=== PATIENT | female | born 1980 | race Caucasian/White ===

== ENCOUNTER 2017-11-27 08:20 | Day surgery (SDC) | payer OTHER, SELFPAY ==
[2017-11-22 09:59] VITALS: BMI 21.1
[2017-11-27] VITALS (9 sets, daily range): BP systolic 107–131; BP diastolic 68–83; PULSE 79–92; RESP 14–16; TEMP 36.3–36.9; O2SAT 95–100; BMI 20.9
[2017-11-27] MEDS: LACTATED RINGERS 1,000 ML 42 ML IV (09:16)
[2017-11-27] MEDS: MIDAZOLAM 2 MG/2 ML VIAL IV (09:43)
--- NOTE | 2017-11-27 10:02 | SUR.PREOP ---
Block start time [] . Monitoring initiated and maintained throughout procedure. Oxygen and medications given per anesthesiologist instructions. Patient remained stable throughout procedure, no adverse reactions noted. Block end time [].0943 Block start time [0943] . Monitoring initiated and maintained throughout procedure. Oxygen and medications given per anesthesiologist instructions. Patient remained stable throughout procedure, no adverse reactions noted. Block end time [0955].
[2017-11-27] MEDS: CEFAZOLIN 1 GM/50 ML FROZ.PIGGY IV (10:07)
--- NOTE | 2017-11-27 10:42 | P.PCN_ITS ---
Procedures Date/Time Date of procedure: 11/27/17 Time of procedure: 09:43 Nerve Block Time out performed: Yes Local anesthetic used: other (15mL 0.5 opivacaine, 5mL 2* idocaine) Location of anesthetic used: interscalene Amount of anesthesia used (mL): 20 Nerve blocks: brachial plexus (interscalene) Procedure successful: Yes Patient tolerated procedure: well Complications: none Additional comments: Risks and benefits discussed, including bleeding, infection , intravascular injection, nerve damage, block failure. Standard ASA monitors, NC O2. Pt supine. Chloroprep site preparation, sterile technique. Brachial plexus identified with US guidance, traced from supraclavicular to interscalene. 1mL 2% lidocaine skin wheal. 22g x 50mm Pajunk advanced with in- plane US guidance to brachial plexus. Negative aspiration. LA injected with intermittent negative aspiration. Good LA spread noted on US. No pain, no paraesthesia. Pt tolerated procedure well. Vital signs stable.
--- NOTE | 2017-11-27 10:55 | SUR.OPER ---
Lateral on padded OR bed with flores bag positioner, head on pillow, gel axillary roll in place, bottom leg bent with gel pad under knee to foot, upper leg straight and supported with pillows. Operative arm secured in shoulder positioning suspension device. non-operative arm secured on padded arm board. Safety belt at hip, tape over blanket securing lower legs.
--- NOTE | 2017-11-27 11:00 | PM.PREOP ---
Pre-operative Note Interval Note Pre-op Check: History & Physical Reviewed by Physician and Changes
[2017-11-27] MEDS: SODIUM CHLORIDE IRRIG SOLUTION 3,000 ML, EPINEPHrine 1 MG IRR (11:19)
[2017-11-27] MEDS: ONDANSETRON 4 MG/2 ML INJ IV (12:12)
[2017-11-27] MEDS: MEPERIDINE 25 MG/ML SYRINGE IV ×2 (12:14→12:26)
--- NOTE | 2017-11-27 12:14 | P.OP_ITS ---
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 After discussion the risks benefits and alternatives she has agreed to proceed with arthroscopic capsulorrhaphy. Risks discussed included but were not limited to: Failure to improve, stiffness, nerve damage, infection, deep venous thrombosis , pulmonary embolism, stroke, coma, permanent paralysis, myocardial infarction and . Surgeon: Chi Edmnodson Fiberglass Dowel Drawing Operator: Isaiah Kingsley Click Yes if Unassisted: No Anesthesia Type: General and Peripheral nerve block Operative Notes Findings: 1. Normal glenohumeral cartilage 2. Normal glenohumeral labrum 3. Normal biceps tendon 4. Normal subscapularis 5. Normal supraspinatus 6. Normal infraspinatus 7. Patulous capsule with very thin tissue 8. Exam under anesthesia notable for full range of motion but excessive laxity compared to the other side anterior posterior and inferior with a predominant anterior direction. Closure Type: primary Specimen(s): none sent Implants & Drains: Four Arthrex knotless SutureTak anchors were implanted. A fifth came loose and was removed and discarded. Applied: implant(s) Estimated Blood Loss (mL): 5 Blood products transfused: none Tourniquet time (min): 0 Procedure in detail: The patient was seen in the preoperative area where she identified her left shoulder as the operative site and this was marked with my initials. She received preoperative antibiotics and underwent the induction of an interscalene block. She was then taken to the operating room and placed on the operating room table in a supine position where she underwent induction with general anesthetic. Her shoulders were examined under anesthesia with result given above. She was then repositioned in the right lateral decubitus position with an axillary roll and padding for all pressure points. She was stabilized in this position using the flores bag. The left arm was prepared from the wrist to the base of the neck with ChloraPrep in the usual fashion and draped through sterile drapes. The arm was placed in 10 lb of skin cyst tension. The subcutaneous landmarks were outlined on the skin with a marking pen and portal sites selected. The posterior portal was created for the arthroscope and an anterior superior portal created for the 5 mm cannula. An anterior inferior portal was created for the larger 8.5 mm working cannula. Initially after diagnostic arthroscopy I used a rasp to abrade the capsule next to the anterior glenoid. Three anchors were placed and sutures placed sequentially from the inferior to the more superior tissues incorporating approximately a cm of patulous capsule to imbricate it. Switching sticks were then used to place the arthroscope in the anterior portal and the posterior portal was used for the 8.5 mm working cannula. A percutaneous approach was used to place a single anchor at the insertion of the posterior band of the inferior glenohumeral ligament. This ligament was also imbricated. This anchor was placed twice 1 time it pulled out and it was discarded. Prior to placement of the suture the capsule had been abraded as the anterior capsule had been. The shoulder was then examined out of traction with all fluid expelled. Stability had been restored. I had considered using a rotator interval closure but given the very friable tissue in the rotator interval it did not appear that there would be adequate suture to hold the stitch other than placing it through the subscapularis and supraspinatus themselves which I felt would be excessive. The wounds were closed with 4 0 Monocryl and Steri-Strips. Dressings of sterile 4x4s, an ABD and adhesive dressing were applied. The patient's arm was placed in a sling and she was transferred to the recovery room in good condition having tolerated the procedure well. Complications: none Condition: stable Disposition: PACU Plan for aftercare: The patient will be maintained on a standard multidirectional instability protocol with 6 weeks in a sling followed by physical therapy.
[2017-11-27] MEDS: OXYCODONE IR 5 MG TABLET PO (13:00)
== END 2017-11-27 13:49 ==
PROVIDERS: PCP Registered Nurse Diabetes Educator; Visit Provider Orthopaedic Surgery
PROC: 0RQK4ZZ Repair Left Shoulder Joint, Percutaneous Endoscopic Approach (ICD-10-PCS; CPT 29807; principal; 2017-11-27 09:45)
DX: M25.312 Other instability, left shoulder (principal); G89.18 Other acute postprocedural pain
CPT/HCPCS: 29806; 64450; J0171; J1100; J2175; J2250; J2405; J2704; J3010

== ENCOUNTER 2020-05-01 18:45 | Observation (INO) | payer OTHER, SELFPAY ==
[2020-05-01 18:50] VITALS: BP 155/79; PULSE 83; RESP 20; TEMP 36.4; O2SAT 100; BMI 20.9
--- NOTE | 2020-05-01 18:59 | DI.RAD.S_ITS ---
PROCEDURE: XR CHEST 1V INDICATIONS: chest pain TECHNIQUE: One view of the chest was acquired. COMPARISON: None. FINDINGS: Surgical changes and devices: None. Lungs and pleura: Lungs are clear. No pleural effusions or pneumothorax. Mediastinum: Mediastinal contours appear normal. Heart size is normal. Bones and chest wall: No suspicious bony lesions. Overlying soft tissues appear unremarkable. IMPRESSION: No acute cardiopulmonary abnormality. Dictated by: Nicola Zayas M.D. on 05/01/2020 at 19:48 Approved by: Nicola Zayas M.D. on 05/01/2020 at 19:49
[2020-05-01 19:30] LABS: Add Manual Diff / Slide Review NO; Basophils Absolute Auto 0 /uL (0-100); Basophils Percent Auto 0.4 % (0-2); Eosinophils Absolute Auto 100 /uL (0-450); Eosinophils Percent Auto 0.8 % (2-4); Hematocrit 37.3 % (36-46); Hemoglobin 12.5 g/dL (12.0-16.0); Lymphocytes Absolute Auto 2100 /uL (1100-4500); Lymphocytes Percent Auto 21.3 % (25-40); Mean Corpuscular HGB Conc 33.6 % (30-36); Mean Corpuscular Hemoglobin 30.5 PG (26-34); Monocytes Absolute Auto 700 /uL (0-900); Monocytes Percent Auto 6.7 % (3-14); Neutrophils Absolute Auto 7100 /uL (1500-7000); Neutrophils Percent Auto 70.8 % (50-75); Platelet Count 265 X10^3/uL (150-400); Red Cell Distribution Width 13.5 % (11.6-14.8)
[2020-05-01 19:38] LABS: Prothrombin Time 11.2 SECONDS (10.1-12.7)
[2020-05-01 19:40] LABS: PTT Partial Thromboplastin Tim 29 SECONDS (26.4-36.2)
[2020-05-01 19:42] LABS: Alanine Aminotransferase 11 IU/L (<35); Albumin 4.1 g/dL (3.5-5.0); Albumin Globulin Ratio 1.3 (1.0-2.8); Alkaline Phosphatase 52 U/L (38-126); Aspartate Aminotransferase 20 IU/L (14-36); BUN Creatinine Ratio 14.5 (6-22); Bilirubin Total 0.3 mg/dL (0.2-1.3); Blood Urea Nitrogen 12 mg/dL (7-17); Calcium 8.7 mg/dL (8.4-10.2); Carbon Dioxide 31 mmol/L (22-32); Chloride 103 mmol/L (98-107); Creatine Kinase 51 U/L (30-135); Estimated Glomerular Filt Rate > 60.0 mL/min (>60); Globulin 3.2 g/dL (1.7-4.1); Glucose 114 mg/dL (70-100); HEMOLYSIS < 15 (0-50); Lipase 86 U/L (23-300); Potassium 4.6 mmol/L (3.4-5.1); Sodium 137 mmol/L (137-145); Total Protein 7.3 g/dL (6.3-8.2)
[2020-05-01 19:54] LABS: Troponin I < 0.012 ng/mL (0.01-0.034)
[2020-05-01 20:02] VITALS: BP 123/72; RESP 12
--- NOTE | 2020-05-01 20:06 | ED_ITS ---
HPI - Extremity Problem General Chief complaint: Extremity Problem,Nontraumatic Stated complaint: RIGHT SHOULDER PAIN HARD TIME BREATHING OF PAIN Time Seen by Provider: 05/01/20 19:11 Source: patient Mode of arrival: Family Vehicle Limitations: no limitations History of Present Illness HPI Narrative: 39-year-old female nonsmoker with noncontributory medical history presents with her significant other and a chief complaint of severe right shoulder pain in the absence of injury, gradually worsening over the course of the day. She denies any numbness, tingling or weakness. She denies any worsening of pain with motion of her arm but does state that it hurts when she takes a deep breath or lays on her right side. She has had nausea but denies any vomiting or fever. MD Complaint: extremity pain Onset (ago): hour(s) Pain Consistency: constant Location: right Quality: burning and stabbing Radiation: none Associated symptoms: chest pain Related Data Home Medications Medication Instructions Recorded Confirmed clonidine HCl 0.2 mg PO QPM 11/22/17 05/02/20 pentosan polysulfate sodium 100 mg PO DAILY 11/22/17 05/02/20 [Elmiron] norgestimate-ethinyl estradiol 1 tab PO DAILY 05/02/20 05/02/20 [Previfem] trazodone 25 mg PO BEDTIME 05/02/20 05/02/20 venlafaxine [Effexor XR] 150 mg PO BEDTIME 05/02/20 05/02/20 Allergies Allergy/AdvReac Type Severity Reaction Status Date / Time wheat dextrin Allergy Severe Abdominal Verified 05/01/20 22:26 Pain Sulfa (Sulfonamide Allergy Unknown Unverified 05/01/20 22:26 Antibiotics) [SULFA (SULFONAMIDE ANTIBIOTICS)] Review of Systems Constitutional Constitutional: Denies chills, Denies fatigue, Denies fever(s), Denies frequent falls, Denies lethargy and Denies weakness Eyes Eyes: Denies change in vision, Denies eye discharge, Denies irritation and Denies loss of vision ENT Ears, Nose, Mouth, and Throat: Denies change in voice, Denies dizziness, Denies neck pain, Denies sore throat and Denies throat swelling Cardiovascular Cardiovascular: Denies chest pain, Denies irregular heart rhythm, Denies lightheadedness, Denies palpitations, Denies dyspnea, Denies dyspnea on exertion and Denies orthopnea Respiratory Respiratory: Denies cough, Denies dyspnea, Denies dyspnea on exertion and Denies wheezing Gastrointestinal Gastrointestinal: Reports abdominal pain, Denies change in bowel habits, Denies diarrhea, Reports nausea and Denies vomiting Musculoskeletal Musculoskeletal: Reports back pain, Denies neck pain and Denies numbness Integumentary/Breasts Skin/Breast: Denies pruritus, Denies erythema, Denies rash and Denies wounds Neurologic Neurologic: Denies behavioral changes, Denies confusion, Denies dizziness, Denies frequent falls, Denies loss of vision, Denies numbness and Denies weakness Psychiatric Psychiatric: Denies anxiety, Denies behavioral changes, Denies confusion, Denies depression, Denies homicidal ideation and Denies suicidal ideation Endocrine Endocrine: Denies fatigue, Denies flushing and Denies palpitations Hematologic/Lymphatic Hematologic/Lymphatic: Denies easy bruising Allergic/Immunologic Allergic/Immunologic: Denies urticaria, Denies throat swelling and Denies wheezing Patient History Medical History (Updated 05/02/20 @ 02:04 by Adan Lan DO) Headache, migraine History of UTI Weakness of left upper extremity Surgical History (Updated 11/22/17 @ 10:05 by Alma Rodriguez RN) H/O breast augmentation H/O wisdom tooth extraction H/O: Hx of shoulder surgery Social History household members: spouse and children Smoking Status: Never smoker alcohol intake: never Smoking Status: Never smoker alcohol intake frequency: 0-2 drinks per day Substance Use Type: does not use Exam Narrative Exam Narrative: GENERAL: [39] year old patient appears stated age. Well- nourished, well-developed patient, in mild distress. HEAD: Atraumatic. Normocephalic. EYES: Pupils equal round and reactive. Extraocular motions intact. No scleral icterus. No injection or drainage. ENT: Nose without bleeding, purulent drainage. Throat without erythema, tonsilla r hypertrophy or exudate. Airway patent. NECK: Trachea midline. Non tender CARDIOVASCULAR: Regular rate and rhythm without murmurs, gallops, or rubs. RESPIRATORY: Clear to auscultation. Breath sounds equal bilaterally. No wheezes, rales, or rhonchi. GASTROINTESTINAL: Abdomen soft, tender in right upper quadrant to palpation, nondistended. EXTREMITIES: No edema or joint tenderness. No reproducible pain with palpation, or range of motion of shoulder (passive or active) BACK: Nontender without deformity or crepitance. No flank tenderness. NEURO: AOx3. SKIN: No rash or erythema of visible areas Initial Vital Signs Initial Vital Signs: Vital Signs Temperature 97.6 F 05/01/20 18:50 Pulse Rate 83 05/01/20 18:50 Respiratory Rate 20 05/01/20 18:50 Blood Pressure 155/79 H 05/01/20 18:50 Pulse Oximetry 100 05/01/20 18:50 Course Orders Ordered: ED Orders 05/01/20 18:56 EKG-12 Lead Stat 05/01/20 18:59 XR chest 1V Stat 05/01/20 19:23 Complete Blood Count AUTO DIFF Stat Comprehensive Metabolic Panel Stat Lipase Stat Partial Thromboplastin Time Stat Prothrombin Time INR Stat Troponin & CK Cardiac Panel Stat 05/01/20 20:23 US abdomen limited Stat 05/01/20 22:49 CT abdomen pelvis w con Stat 05/02/20 00:40 CT angio chest PE protocol Stat 05/02/20 01:42 COVID19 Stat Enoxaparin Sodium (Enoxaparin 60 Mg/0.6 Ml Syringe) 60 mg 1 mg/kg (60 mg) SUBCUT BID TARA Last Admin: 05/02/20 01:39 Dose: 60 mg Documented by: BRYNN Ondansetron HCl (Ondansetron 4 Mg/2 Ml Inj) 4 mg IV Q4HR PRN PRN Reason: Nausea And Vomiting Last Admin: 05/01/20 20:29 Dose: 4 mg Documented by: BRYNN Discontinued Medications Hydromorphone HCl (Hydromorphone 0.5 Mg Inj) 0.5 mg IV NOW ONE Stop: 05/01/20 20:24 Last Admin: 05/01/20 20:29 Dose: 0.5 mg Documented by: BRYNN Sodium Chloride (Normal Saline 0.9%) 1,000 mls @ 1,000 mls/hr IV BOLUS ONE Stop: 05/01/20 21:22 Last Infusion: 05/02/20 02:15 Dose: 0 mls/hr Documented by: Infusion: 05/02/20 01:30 Dose: 1,000 mls/hr Documented by: Infusion: 05/01/20 20:46 Dose: 0 mls/hr Documented by: Admin: 05/01/20 20:29 Dose: 1,000 mls/hr Documented by: BRYNN Ketorolac Tromethamine (Ketorolac 60 Mg/2 Ml Vial) 15 mg IV NOW ONE Stop: 05/01/20 22:50 Last Admin: 05/01/20 22:58 Dose: 15 mg Documented by: BRYNN Vital Signs Vital signs: Vital Signs - 8 hr 05/01/20 18:50 05/01/20 20:02 05/02/20 01:56 Temperature 97.6 F Pulse Rate 83 74 Respiratory Rate 20 12 16 Blood Pressure 155/79 H 123/72 123/77 Pulse Oximetry 100 98 05/02/20 02:00 Temperature Pulse Rate 68 Respiratory Rate 19 Blood Pressure 122/72 Pulse Oximetry 98 MDM - Extremity (Nontraumatic) Lab Data Result diagrams: 05/01/20 19:23 05/01/20 19:23 Labs: Lab Results 05/01/20 05/01/20 05/01/20 Range/Units 19:23 19:23 19:23 WBC 10.0 (4.5-11.0) X10^3/uL RBC 4.10 (4.0-5.2) X10^6/uL Hgb 12.5 (12.0-16.0) g/dL Hct 37.3 (36-46) % MCV 91.0 (80-100) fL MCH 30.5 (26-34) PG MCHC 33.6 (30-36) % RDW 13.5 (11.6-14.8) % Plt Count 265 (150-400) X10^3/uL Neut % (Auto) 70.8 (50-75) % Lymph % (Auto) 21.3 L (25-40) % [place] % (Auto) 6.7 (3-14) % Eos % (Auto) 0.8 L (2-4) % Baso % (Auto) 0.4 (0-2) % Neut # (Auto) 7100 H (2764-2671) /uL Lymph # (Auto) 2100 (1493-7372) /uL [place] # (Auto) 700 (0-900) /uL Eos # (Auto) 100 (0-450) /uL Baso # (Auto) 0 (0-100) /uL PT 11.2 (10.1-12.7) SECONDS INR 1.0 (0.9-1.3) APTT 29 (26.4-36.2) SECONDS Sodium 137 (137-145) mmol/L Potassium 4.6 (3.4-5.1) mmol/L Chloride 103 (98-107) mmol/L Carbon Dioxide 31 (22-32) mmol/L BUN 12 (7-17) mg/dL Creatinine 0.83 (0.52-1.04) mg/dL Estimated GFR > 60.0 (>60) mL/min BUN/Creatinine Ratio 14.5 (6-22) Glucose 114 H (70-100) mg/dL Calcium 8.7 (8.4-10.2) mg/dL Total Bilirubin 0.3 (0.2-1.3) mg/dL AST 20 (14-36) IU/L ALT 11 (<35) IU/L Alkaline Phosphatase 52 (38-126) U/L Total Creatine Kinase 51 (30-135) U/L CK-MB (CK-2) TNP CK-MB (CK-2) Rel Index TNP Troponin I < 0.012 (0.01-0.034) ng/mL Total Protein 7.3 (6.3-8.2) g/dL Albumin 4.1 (3.5-5.0) g/dL Globulin 3.2 (1.7-4.1) g/dL Albumin/Globulin Ratio 1.3 (1.0-2.8) Lipase 86 (23-300) U/L COVID-19 PCR (Negative) 05/02/20 Range/Units 01:42 WBC (4.5-11.0) X10^3/uL RBC (4.0-5.2) X10^6/uL Hgb (12.0-16.0) g/dL Hct (36-46) % MCV (80-100) fL MCH (26-34) PG MCHC (30-36) % RDW (11.6-14.8) % Plt Count (150-400) X10^3/uL Neut % (Auto) (50-75) % Lymph % (Auto) (25-40) % [place] % (Auto) (3-14) % Eos % (Auto) (2-4) % Baso % (Auto) (0-2) % Neut # (Auto) (5507-5774) /uL Lymph # (Auto) (5575-5649) /uL [place] # (Auto) (0-900) /uL Eos # (Auto) (0-450) /uL Baso # (Auto) (0-100) /uL PT (10.1-12.7) SECONDS INR (0.9-1.3) APTT (26.4-36.2) SECONDS Sodium (137-145) mmol/L Potassium (3.4-5.1) mmol/L Chloride (98-107) mmol/L Carbon Dioxide (22-32) mmol/L BUN (7-17) mg/dL Creatinine (0.52-1.04) mg/dL Estimated GFR (>60) mL/min BUN/Creatinine Ratio (6-22) Glucose (70-100) mg/dL Calcium (8.4-10.2) mg/dL Total Bilirubin (0.2-1.3) mg/dL AST (14-36) IU/L ALT (<35) IU/L Alkaline Phosphatase (38-126) U/L Total Creatine Kinase (30-135) U/L CK-MB (CK-2) CK-MB (CK-2) Rel Index Troponin I (0.01-0.034) ng/mL Total Protein (6.3-8.2) g/dL Albumin (3.5-5.0) g/dL Globulin (1.7-4.1) g/dL Albumin/Globulin Ratio (1.0-2.8) Lipase (23-300) U/L COVID-19 PCR Negative (Negative) Imaging Data Chest x-ray: Radiologist's Impression: [address] [id number] ReportSigned Patient: Florinda Dimas LMR#: [id number]: [id number]:[id number]/Sex: 39 / FDate of Service: 05/01/20Loc: EDAccession Number: [id number] Procedure: XR chest 1V Ordering Provider: Adan Lan D.O. PROCEDURE: XR CHEST 1V INDICATIONS: chest pain TECHNIQUE: One view of the chest was acquired. COMPARISON: None. FINDINGS: Surgical changes and devices: None. Lungs and pleura: Lungs are clear. No pleural effusions or pneumothorax. Mediastinum: Mediastinal contours appear normal. Heart size is normal. Bones and chest wall: No suspicious bony lesions. Overlying soft tissues appear unremarkable. IMPRESSION: No acute cardiopulmonary abnormality. Dictated by: Nicola Zayas M.D. on 05/01/2020 at 19:48 Approved by: Nicola Zayas M.D. on 05/01/2020 at 19:49 CT scan - abdomen/pelvis: Radiologist's Impression: Anterolateral right lower lobe consolidation, probable pneumonia CT scan - chest: Radiologist's Impression: Multiple small right lower lobe pulmonary emboli with consolidation concerning for infarct MDM Narrative Medical decision making narrative: Patient initial presentation is of right shoulder pain in the absence of any injury. She states she woke up with it is afraid she had slept wrong. She has got no respiratory complaints in terms of shortness of breath, cough or hemoptysis, only complains that a deep breath hurts along her lower rib. On exam she was quite tender in her right upper quadrant and there was clinical concern for gallbladder disease causing radiation of pain to her shoulder, particularly in the setting of an elevated bilirubin. Ultrasound demonstrated a benign appearing gallbladder, CT was ordered for more detailed examination. Consolidation concerning for pneumonia and possibly PE made a CTA required. Patient requires admission given evidence of infarct on imaging, though she has the absence of any respiratory distress, hypoxia or hemoptysis. She denies any obvious risk factors other than blood thinners. She has no evidence of right heart strain which would require transfer. She has been advised her diagnosis and need for admission, she understands and agrees with the plan Discharge Plan Departure Patient Disposition: Admitted as Observation Clinical Impression: Embolism, pulmonary with infarction Pulmonary embolism Qualifiers: Pulmonary embolism type: unspecified Chronicity: acute Acute cor pulmonale presence: without acute cor pulmonale Qualified Code(s): I26.99 - Other pulmonary embolism without acute cor pulmonale Admit Date/Time: 05/02/20 02:06 Admit Provider: Paty Courtney
--- NOTE | 2020-05-01 20:23 | DI.US.S_ITS ---
PROCEDURE: US ABDOMEN LIMITED INDICATIONS: severe RUQ pain with radiation to the back/shoulder TECHNIQUE: Real-time scanning was performed of the abdominal, with image documentation. COMPARISON: [facility], CR, XR CHEST 1V, 05/01/2020, 19:43. FINDINGS: Liver: Liver is normal in size and homogeneous in echotexture. Gallbladder: Nondilated. No stones or sludge. Normal gallbladder wall thickness. No pericholecystic fluid. Negative sonographic Rebollar's sign. Biliary ducts: Intrahepatic bile ducts are non-dilated. Extrahepatic bile duct caliber measures 2 mm. Normal is 6-7 mm or less in diameter, or 10 mm or less post-cholecystectomy. Pancreas: Visualized portions of the pancreas are sonographically normal. IMPRESSION: No acute cholecystitis. No gallstones. Dictated by: Nicola Zayas M.D. on 05/01/2020 at 21:34 Approved by: Nicola Zayas M.D. on 05/01/2020 at 21:35
[2020-05-01] MEDS: HYDROMORPHONE 0.5 MG INJ IV (20:29)
[2020-05-01] MEDS: ONDANSETRON 4 MG/2 ML INJ IV (20:29)
[2020-05-01] MEDS: SODIUM CHLORIDE 0.9% 1,000 ML 1000 ML IV (20:29)
--- NOTE | 2020-05-01 22:49 | DI.CT.S_ITS ---
PROCEDURE: CT ABDOMEN PELVIS W CON INDICATIONS: RIGHT SHOULDER PAIN HARD TIME BREATHING TECHNIQUE: After the administration of intravenous contrast, 5 mm thick sections acquired from the diaphragm to the symphysis. 5 mm coronal and sagittal reformats were acquired. For radiation dose reduction, the following was used: automated exposure control, adjustment of mA and/or kV according to patient size. COMPARISON: [facility], CT, CT ANGIO CHEST PE PROTOCOL, 05/02/2020, 0:41. FINDINGS: Image quality: Excellent. ABDOMEN: Lung bases: Focal consolidation, interim basal segment, right lower lobe. Pulmonary emboli are seen on the corresponding PE protocol chest CT angiogram. Heart size is normal. Solid organs: Liver is normal in size and enhancement. Gallbladder is unremarkable. Biliary system is non dilated. Pancreas enhances normally. Spleen is normal in size and enhancement. No adrenal nodules. Kidneys demonstrate normal size and enhancement, without hydronephrosis. Peritoneum and bowel: Bowel loops demonstrate normal wall thickness and caliber. Physiologic fluid in the pelvis. No free air or abscess. Large amount of fecal debris. Nodes and vessels: No retroperitoneal or mesenteric adenopathy by size criteria. Aorta and inferior vena cava are normal in size. Miscellaneous: No ventral hernias. Bilateral mammoplasties PELVIS: Genitourinary: Bladder wall thickness is normal. Miscellaneous: No inguinal hernias or adenopathy. Bones: No suspicious bony lesions. No vertebral body compression fractures. IMPRESSION: 1. Pulmonary emboli are seen on the CT angiogram of the chest. Please refer to a separate report. 2. Focal consolidation in the anterior basal segment of the right lower lobe may represent pulmonary infarct. 3. Large fecal load. Comment: Final report is concordant with preliminary interpretation provided by [facility]. Dictated by: Yefri Loera M.D. on 05/02/2020 at 8:56 Approved by: Yefri Loera M.D. on 05/02/2020 at 9:00
[2020-05-01] MEDS: KETOROLAC 60 MG/2 ML VIAL 15 MG IV (22:58)
[2020-05-02] VITALS (13 sets, daily range): BP systolic 120–138; BP diastolic 72–87; PULSE 66–89; RESP 15–20; TEMP 36.2–37; O2SAT 94–100; BMI 20.9
--- NOTE | 2020-05-02 | DI.US.S_ITS ---
PROCEDURE: US CAROTID DOPPLER BI INDICATIONS: right sided PE TECHNIQUE: Color and pulse Doppler interrogation was performed of both carotid systems, with image documentation and velocity measurements. COMPARISON: None. FINDINGS: Stenosis calculations are based on SRU (Society of Radiologists in Ultrasound) criteria. Right side: Common carotid artery peak systolic velocity: 62 cm/sec. Internal carotid artery peak systolic velocity: 84.1 cm/sec. Internal carotid artery end diastolic velocity: 36.8 cm/sec. External carotid artery peak systolic velocity: 108 cm/sec. ICA/CCA peak systolic ratio: 1.36 . Alvarado scale imaging description: There is minimal echogenic plaque at the distal common carotid/bulb. Percent internal carotid artery stenosis: No significant stenosis . Vertebral artery: Flow direction is antegrade. Left side: Common carotid artery peak systolic velocity: 75.8 cm/sec. Internal carotid artery peak systolic velocity: 80.2 cm/sec. Internal carotid artery end diastolic velocity: 35.6 cm/sec. External carotid artery peak systolic velocity: 75.5 cm/sec. ICA/CCA peak systolic ratio: 1.03 . Alvarado scale imaging description: There is minimal echogenic plaque noted within the common carotid artery and at the bulb. Percent internal carotid artery stenosis: No significant stenosis. . Vertebral artery: Flow direction is antegrade. IMPRESSION: No significant flow limiting stenosis. Dictated by: Chalino Shirley D.O. on 05/02/2020 at 14:43 Approved by: Chalino Shirley D.O. on 05/02/2020 at 14:48
--- NOTE | 2020-05-02 00:40 | DI.CT.S_ITS ---
PROCEDURE: CT ANGIO CHEST PE PROTOCOL INDICATIONS: pleuritic chest pain, abnormal abdomen CT TECHNIQUE: After the administration of intravenous contrast, 2 mm thick sections acquired from the pulmonary apices to the posterior costophrenic angles. 3-dimensional maximum intensity projection (MIP) coronal and sagittal reformats were then acquired through the thorax. For radiation dose reduction, the following was used: automated exposure control, adjustment of mA and/or kV according to patient size. COMPARISON: None. FINDINGS: Image quality: Excellent. Pulmonary arteries: Pulmonary arteries are normal in size. There are multiple filling defects within the right lower lobe segmental and subsegmental vessels. In addition there is subsegmental filling defect within the left lower lobe. Lungs and pleura: Consolidation within the lateral and anterior aspect of the right lower lobe with ground-glass consolidation centrally and more density peripherally. No additional consolidation. There is no pneumothorax or pleural effusion. There is mild apical scarring. No pleural effusions or pneumothorax. Central and peripheral airways are patent. Mediastinum: Heart size is normal, without pericardial effusion. No evidence of right heart strain. The RV to LV ratio is approximately 0.8. No mediastinal or hilar adenopathy. Thoracic aorta is normal in caliber and enhancement. Esophagus is normal in caliber, without hiatal hernia. Bones and chest wall: No suspicious bony lesions. Ribs and thoracic spine appear intact throughout. Thyroid gland is unremarkable. No axillary or supraclavicular adenopathy. Bilateral breast implants are intact. Abdomen: Visualize upper abdomen demonstrates subcentimeter hypodensities within the liver too small to further characterize but statistically represent simple cysts. Contrast is noted within the collecting system. No acute abnormality within the visualized upper abdomen. IMPRESSION: Multiple right lower lobe segmental and subsegmental pulmonary emboli. In addition there is a left lower lobe subsegmental emboli. No evidence of right heart strain. Anterolateral right lower lobe consolidation concerning for infarct. Subtle discrepancy from preliminary report. Preliminary report did not discuss left lower lobe subsegmental emboli, otherwise no additional change from preliminary report. Dictated by: Chalino Shirley D.O. on 05/02/2020 at 7:43 Approved by: Chalino Shirley D.O. on 05/02/2020 at 7:56
[2020-05-02] MEDS: ENOXAPARIN 60 MG/0.6 ML SYRINGE SUBCUT ×2 (01:39→07:58)
[2020-05-02 02:14] LABS: COVID19 -Nasal RAPID Negative (Negative)
--- NOTE | 2020-05-02 03:40 | PM.HP.1 ---
History of Present Illness History of Present Illness Date Patient Seen: 05/02/20 Time Patient Seen: 01:00 Chief complaint: RIGHT SHOULDER PAIN HARD TIME BREATHING OF PAIN Narrative: Florinda Dimas is 39-year-old female nonsmoker with a history of celiac disease, anxiety and interstitial cystitis and takes oral contraception, presented with her significant other and a chief complaint of severe right shoulder pain in the absence of injury, gradually worsening over the course of the day. She woke up with pain in her right shoulder initially thinking she may have slept on it wrong. The pain progressively got worse and after approximately late afternoon it seemed to be correlated with her breathing. She denies any nasal congestion, headaches, she has had palpitations today, she has also been short of breath earlier today. She has interstitial cystitis so has chronic polyuria and nocturia. She denies any issues with peripheral neuropathy or skin rashes. She denies any numbness, tingling or weakness. She denies any worsening of pain with motion of her arm but does state that it hurts when she takes a deep breath or lays on her right side. She has had nausea but denies any vomiting or fever. She denies a history of recent travel, prolonged immobility, recent surgery, or recent trauma to her upper lower extremities. In the ED they are raised a reasonable suspicion of a PE after she had point tenderness to deep palpation of her right shoulder that did not seem correlated with her moving her arm around. They did a CT of abdomen and pelvis which identified anteriorolateral right lower lobe consolidation with a suspicion for pneumonia. A subsequent CT angio of the chest indicated right anterolateral and post medial lower lobe pulmonary emboli. No evidence of right heart strain with a right to left ventricle ratio 0.8. They also noted anterolateral right lower consolidation concerning for infarct. Patient's temp was 97.2?, blood pressure 136/86, heart rate 76, respiratory rate of 16, oxygen saturation 94% on room air, she weighs 50.9 kg with a BMI of 20.9. With exception of mild lymphopenia her CBC is within normal limits. She also has a mild left shift at 7100 neutrophils, glucose is 114, and COVID-19 PCR is negative. Patient History Medical History Headache, migraine History of UTI Weakness of left upper extremity Surgical History H/O breast augmentation H/O wisdom tooth extraction H/O: Hx of shoulder surgery Family & Social History Social History: household members spouse,children Safety & Behavioral: Feels Safe in Current Yes Environment Been Physically Hurt or No Threatened By a Person Tobacco & Substance use: Smoking Status Never smoker alcohol intake never alcohol intake frequency 0-2 drinks per day Substance Use Type does not use Meds Home Medications and Allergies Home Medications Medication Instructions Recorded Confirmed Type clonidine HCl 0.2 mg PO QPM 11/22/17 05/02/20 History pentosan polysulfate sodium 100 mg PO DAILY 11/22/17 05/02/20 History [Elmiron] norgestimate-ethinyl estradiol 1 tab PO DAILY 05/02/20 05/02/20 History [Previfem] trazodone 25 mg PO BEDTIME 05/02/20 05/02/20 History venlafaxine [Effexor XR] 150 mg PO BEDTIME 05/02/20 05/02/20 History Allergies Allergy/AdvReac Type Severity Reaction Status Date / Time wheat dextrin Allergy Severe Abdominal Verified 05/02/20 03:56 Pain Sulfa (Sulfonamide Allergy Unknown Rash Verified 05/02/20 03:56 Antibiotics) [SULFA (SULFONAMIDE ANTIBIOTICS)] Review of Systems Review of Systems ROS: Yes All systems reviewed with the patient and are negative except as otherwise documented Exam Vital Signs (past 8 hours): - 05/01/20 20:02 05/02/20 01:56 05/02/20 02:00 Temperature Pulse Rate 74 68 Respiratory Rate 12 16 19 Blood Pressure 123/72 123/77 122/72 Pulse Oximetry 98 98 05/02/20 02:50 Temperature 97.2 F L Pulse Rate 76 Respiratory Rate 16 Blood Pressure 136/86 Pulse Oximetry 94 Oxygen Delivery Method Room Air Oxygen Flow Rate 0 Narrative Exam Narrative: Gen: Alert, oriented, thiin 39 y.o. female, pale HEENT: normocephalic, atraumatic, conjunctiva clear, sclera non-icteric, oral mucosa pink and moist Neck: supple, full ROM, no JVD, trachea is midline Resp: Lungs CTA, non-labored breathing CV: RRR, no murmur or rubs Abd: soft, non-tender, normoactive BTs Skin: no lesions or rashes, dry and intact Neuro: Alert and oriented X 4 w/no focal deficits. Speech clear and coherent. Extremities: moves all 4 extremities, is ambulatory, negative Baljinder?s sign Psyche: normal mood and affect. Objective Labs Result Diagrams: 05/01/20 19:23 05/01/20 19:23 Labs: Laboratory Results - last 24 hr 05/01/20 05/01/20 05/01/20 19:23 19:23 19:23 WBC 10.0 RBC 4.10 Hgb 12.5 Hct 37.3 MCV 91.0 MCH 30.5 MCHC 33.6 RDW 13.5 Plt Count 265 Neut % (Auto) 70.8 Lymph % (Auto) 21.3 L [place] % (Auto) 6.7 Eos % (Auto) 0.8 L Baso % (Auto) 0.4 Neut # (Auto) 7100 H Lymph # (Auto) 2100 [place] # (Auto) 700 Eos # (Auto) 100 Baso # (Auto) 0 PT 11.2 INR 1.0 APTT 29 Sodium 137 Potassium 4.6 Chloride 103 Carbon Dioxide 31 BUN 12 Creatinine 0.83 Estimated GFR > 60.0 BUN/Creatinine Ratio 14.5 Glucose 114 H Calcium 8.7 Total Bilirubin 0.3 AST 20 ALT 11 Alkaline Phosphatase 52 Total Creatine Kinase 51 CK-MB (CK-2) TNP CK-MB (CK-2) Rel Index TNP Troponin I < 0.012 Total Protein 7.3 Albumin 4.1 Globulin 3.2 Albumin/Globulin Ratio 1.3 Lipase 86 COVID-19 PCR 05/02/20 01:42 WBC RBC Hgb Hct MCV MCH MCHC RDW Plt Count Neut % (Auto) Lymph % (Auto) [place] % (Auto) Eos % (Auto) Baso % (Auto) Neut # (Auto) Lymph # (Auto) [place] # (Auto) Eos # (Auto) Baso # (Auto) PT INR APTT Sodium Potassium Chloride Carbon Dioxide BUN Creatinine Estimated GFR BUN/Creatinine Ratio Glucose Calcium Total Bilirubin AST ALT Alkaline Phosphatase Total Creatine Kinase CK-MB (CK-2) CK-MB (CK-2) Rel Index Troponin I Total Protein Albumin Globulin Albumin/Globulin Ratio Lipase COVID-19 PCR Negative Assessment & Plan Assessment & Plan narrative: Florinda Dimas will be observed overnight to transition her from enoxaparin injections to oral anticoagulation, to work up the cause of the PE and to undergo echocardiogram imaging for the right lower lobe PE. Right lower lobe pulmonary embolism, acute and present on admission -She will continue therapeutic dose of enoxaparin 60 mg subQ twice daily -She will need to undergo coagulation studies to further assess her risks for repeated exacerbations Prediabetes with an A1c of 6.1 -She will start a diabetic carb controlled diet -She will need Diabetes education -She will have low dose correctional insulin and she should followup with her PCP on regular management of her diabetes. Hormone contraception -high risk for a PE and have advised the patient she will need to seek out an alternative control measure. VTE prophylaxis: Wells risk score: 3 Enoxaparin 60 mg subQ bid for the therapeutic dosing for a pulmonary embolism Consults: consult and involvement is appreciated. Patient is observation status as her stay is not likely to exceed 2 midnights. FEN: saline lock, diabetic , C/BMP and magnesium in the am. Dispo: probable discharge later today Code Status: Full code as discussed with patient Scores Wells' Criteria for PE Clinical signs and symptoms of DVT: No PE is #1 Dx or equally likely: Yes Heart rate > 100: No Immobilization at least 3 days or surg in previous 4 weeks: No History of PE or DVT: No Hemoptysis: No Malignancy w/Treatment within 6 months or palliative: No Wells' PE Score total: 3
[2020-05-02] MEDS: TRAMADOL 50 MG TABLET PO ×3 (04:00→14:58)
[2020-05-02] MEDS: MORPHINE 2 MG/ML INJ IV (05:26)
[2020-05-02 06:05] LABS: Hemoglobin A1C% w Est Avg Glu 5.7 % (4.0-6.0)
[2020-05-02] MEDS: ACETAMINOPHEN 325 MG TABLET 650 MG PO (09:19)
--- NOTE | 2020-05-02 13:06 | DI.US.S_ITS ---
PROCEDURE: US PERIPH VENOUS LOW EXTREM BI INDICATIONS: RLL PE's R/O DVT TECHNIQUE: Real-time imaging, as well as color and pulse Doppler interrogation, were performed of the deep veins of both legs from the inguinal ligament to the popliteal fossa. COMPARISON: None. FINDINGS: Right: The common femoral, femoral and popliteal veins are normally compressible, and free of intraluminal thrombus. Color and pulse Doppler demonstrate normal phasic intravascular flow. There is normal augmentation response to distal compression maneuver. Left: The common femoral, femoral and popliteal veins are normally compressible, and free of intraluminal thrombus. Color and pulse Doppler demonstrate normal phasic intravascular flow. There is normal augmentation response to distal compression maneuver. IMPRESSION: No evidence of lower extremity venous thrombosis. Dictated by: Chalino Shirley D.O. on 05/02/2020 at 14:35 Approved by: Chalino Shirley D.O. on 05/02/2020 at 14:37
--- NOTE | 2020-05-02 13:28 | CM.DANOTE ---
DCP assessment: EMR Reviewed: patient is a 39 yr old female who as admitted for PE due to her control. patients PCP is [facility]. CM/Rn met with patient and patients at the bedside and explained role. patient was alert and oriented x4 during CM /Rn visit. Patient currently lives in [place] with her and her young children. patient is Independent at baseline and drives. Dr. Heck asked Cm/RN to have norma run RX Eliquis through for patient to determine if it is a finacially affordable option for patient to take at D/C. Norma ran her RX and determined that it would have a co-pay of $33 for a 30day supply. I: prime and self pay Plan: D/C home with family when medically stable on Eliquis. patient is pending an ECHO and Ultrasound to R/O other blood clots. No needs from CM at this time but will follow to assist with any new D/C issues that may arise. Connie Avendano RN Discharge Planning/Care Management CM Discharge Assessment Start: 05/02/20 13:26 Freq: Status: Active Protocol: Document 05/02/20 13:26 (Rec: 05/02/20 13:28 [id number]) Discharge Planning Assessment Assigned [employer] Connie Avendano RN DPOA/Assigned Designee Name Ezra Dimas () Contact Information [phone] Advance Directives? No Advance Directives on File No History Provided By Patient,Medical Record Has Patient been admitted in last 30 No days? Prior Living Arrangements House Household Members spouse,children Type of transporation used prior to Drives own vehicle admit Willing to Return to Facility? No Independent with ADL's Yes Is patient alert and oriented? Yes Caregiver for Another Yes: has young childeren Barriers to Discharge No Discharge Plan Home Referrals Initiated None needed Whiteboard Updated in Patient Room with Yes name and ext. # of Marine [employer]ic Review Status In Process Next Review Type Continued Stay Review
[2020-05-02] MEDS: cloNIDine 0.1 MG TABLET 0.2 MG PO (18:52)
[2020-05-02] MEDS: VENLAFAXINE ER 75 MG CAP 150 MG PO (19:28)
[2020-05-02] MEDS: APIXABAN 5 MG TABLET PO (19:29)
--- NOTE | 2020-05-02 22:49 | PC.NURSE ---
Addendum entered by Maria Elena Reis R.N. 05/02/20 22:56: CORRECTION: CBG NOT DONE ON THIS PT, PT SOUND ASLEEP Original Note: Pt up independently in room. SpO2 99% RA HL LFA intact/patent. CBG AC = 79; HS = 119. Med w/tramadol @ 1930 for discomfort w/good relief. Pt hoping to discharge home in am. Call light w/in reach, pt calls apprpriately for needs. Continue w/plan of care,
[2020-05-03] VITALS: O2SAT 98
[2020-05-03 05:35] LABS: Add Manual Diff / Slide Review NO; Basophils Absolute Auto 0 /uL (0-100); Basophils Percent Auto 0.2 % (0-2); Eosinophils Absolute Auto 100 /uL (0-450); Eosinophils Percent Auto 1.5 % (2-4); Hematocrit 36.1 % (36-46); Lymphocytes Absolute Auto 1600 /uL (1100-4500); Lymphocytes Percent Auto 38.8 % (25-40); Mean Corpuscular HGB Conc 33.2 % (30-36); Mean Corpuscular Hemoglobin 30.4 PG (26-34); Mean Corpuscular Volume 91.6 fL (80-100); Monocytes Absolute Auto 400 /uL (0-900); Neutrophils Absolute Auto 2000 /uL (1500-7000); Neutrophils Percent Auto 49.5 % (50-75); Platelet Count 225 X10^3/uL (150-400); Red Blood Cell Count 3.94 X10^6/uL (4.0-5.2)
[2020-05-03 05:44] LABS: BUN Creatinine Ratio 13.6 (6-22); Blood Urea Nitrogen 11 mg/dL (7-17); Calcium 8.8 mg/dL (8.4-10.2); Carbon Dioxide 29 mmol/L (22-32); Chloride 109 mmol/L (98-107); Estimated Glomerular Filt Rate > 60.0 mL/min (>60); Glucose 93 mg/dL (70-100); HEMOLYSIS < 15 (0-50); Magnesium 2.2 mg/dL (1.6-2.3); Potassium 4.4 mmol/L (3.4-5.1); Sodium 140 mmol/L (137-145)
[2020-05-03 06:46] VITALS: O2SAT 99
[2020-05-03 07:52] VITALS: BP 113/66; PULSE 74; RESP 16; TEMP 36.7; O2SAT 97
[2020-05-03] MEDS: APIXABAN 5 MG TABLET PO (08:02)
[2020-05-03] MEDS: TRAMADOL 50 MG TABLET PO (08:02)
--- NOTE | 2020-05-03 08:39 | P.DS_ITS ---
History of Present Illness History of Present Illness Date Patient Seen: 05/02/20 Chief complaint: RIGHT SHOULDER PAIN HARD TIME BREATHING OF PAIN Narrative: Written by Paty ANNE: Florinda Dimas is 39-year-old female nonsmoker with a history of celiac disease, anxiety and interstitial cystitis and takes oral contraception, presented with her significant other and a chief complaint of severe right shoulder pain in the absence of injury, gradually worsening over the course of the day. She woke up with pain in her right shoulder initially thinking she may have slept on it wrong. The pain progressively got worse and after approximately late afternoon it seemed to be correlated with her breathing. She denies any nasal congestion, headaches, she has had palpitations today, she has also been short of breath earlier today. She has interstitial cystitis so has chronic polyuria and nocturia. She denies any issues with peripheral neuropathy or skin rashes. She denies any numbness, tingling or weakness. She denies any worsening of pain with motion of her arm but does state that it hurts when she takes a deep breath or lays on her right side. She has had nausea but denies any vomiting or fever. She denies a history of recent travel, prolonged immobility, recent surgery, or recent trauma to her upper lower extremities. In the ED they are raised a reasonable suspicion of a PE after she had point tenderness to deep palpation of her right shoulder that did not seem correlated with her moving her arm around. They did a CT of abdomen and pelvis which identified anteriorolateral right lower lobe consolidation with a suspicion for pneumonia. A subsequent CT angio of the chest indicated right anterolateral and post medial lower lobe pulmonary emboli. No evidence of right heart strain with a right to left ventricle ratio 0.8. They also noted anterolateral right lower consolidation concerning for infarct. Patient's temp was 97.2?, blood pressure 136/86, heart rate 76, respiratory rate of 16, oxygen saturation 94% on room air, she weighs 50.9 kg with a BMI of 20.9. With exception of mild lymphopenia her CBC is within normal limits. She also has a mild left shift at 7100 neutrophils, glucose is 114, and COVID-19 PCR is negative. Discharge Providers Provider Date of admission: 05/02/20 02:06 Discharge Date: 05/03/20 Primary care physician: OMID Collier Consults: 05/02/20 02:42 Consult to Discharge Planning Routine Comment: Discharge provider: Laurel Heck DO Summary Hospital Course Discharge Diagnosis: 1. Acute bilateral pulmonary emboli with probable right-sided lung infarction, present on admission. Active. 2. Prediabetes, chronic, present on admission. Stable. 3. Hormone contraception. Hospital Course: Florinda Dimas is a 39-year-old female nonsmoker with a past medical history significant for celiac disease, anxiety and interstitial cystitis and takes oral contraception, presented to the ED with progressive severe right shoulder pain and right-sided chest wall pain in the absence of injury. 1. Acute bilateral pulmonary emboli with probable right-sided lung infarction, present on admission. Active. -Likely provoked and secondary oral contraception. Patient presented with right shoulder and chest wall pain. -CTA chest demonstrated multiple right lower lobe segmental and subsegmental pulmonary emboli and a left lower lobe subsegmental emboli. No evidence of right heart strain. Anterolateral right lower lobe consolidation concerning for infarct. -Bilateral venous Doppler ultrasound negative for DVT. -Echocardiogram unremarkable with normal left ventricular thickness, size, wall motion, and systolic function EF 55-60%, normal right ventricular size and function, no significant valvular abnormalities, and RVSP is estimated to be at least 31 mmHg based on an estimated right atrial pressure of 8 mm Hg. -Discontinued oral contraceptive as below. -Received therapeutic Lovenox 60 mg twice daily which was switched to Eliquis 5 mg twice daily which will need to be continued for 3 months. Could consider hypercoagulable workup per PCP. 2. Prediabetes, chronic, present on admission. Stable. -Hemoglobin A1c 6.1%. -Continued [facility] blood glucose checks and low-dose correctional scale insulin. -Admitting provider counseled patient on prediabetes and recommended lifestyle modification including diet exercise. 3. Hormone contraception. -Discontinued oral contraceptive. Recommended condoms and/or other form of contraception i.e. IUD, vasectomy, tubal ligation. Exam Vital Signs (past 8 hours): - 05/03/20 06:46 05/03/20 07:52 Temperature 98.1 F Pulse Rate 74 Respiratory Rate 16 Blood Pressure 113/66 Pulse Oximetry 99 97 Oxygen Delivery Method Room Air Oxygen Flow Rate 0 Narrative Exam Narrative: General: Young female sitting at bedside and in no acute distress, well- developed, well-nourished, appropriately interactive. HEENT: Normocephalic, atraumatic. External ears without defect. Pupils equal, round, and reactive to light. Anicteric sclerae, moist conjunctivae, and no lid lag. Oropharynx free of erythema and cobble stoning with moist mucosa. Neck: Supple with full range of motion. No lymphadenopathy or thyromegaly. Cardiovascular: Regular rate and rhythm without murmurs, rubs, or gallops appreciated Pulmonary: Clear to auscultation bilaterally without crackles, wheezes, or rhonchi. Normal respiratory effort with no use of accessory muscles. No splinting. Abdomen: Soft, bowel sounds present, nontender, nondistended. No hepato splenomegaly or masses appreciated. Extremities: No clubbing, cyanosis, or edema. Skin: Normal temperature, turgor, and texture; no rash, ulcers, or subcutaneous nodules appreciated. Neurological: Cranial nerves grossly intact. Psychiatric: Mildly anxious mood and affect. Alert and oriented to person, place, and time. Objective Labs Result Diagrams: 05/03/20 04:56 05/03/20 04:56 Labs: Laboratory Results - last 24 hr 05/03/20 05/03/20 04:56 04:56 WBC 4.0 L D RBC 3.94 L Hgb 12.0 Hct 36.1 MCV 91.6 MCH 30.4 MCHC 33.2 RDW 13.0 Plt Count 225 Neut % (Auto) 49.5 L D Lymph % (Auto) 38.8 [place] % (Auto) 10.0 Eos % (Auto) 1.5 L Baso % (Auto) 0.2 Neut # (Auto) 2000 Lymph # (Auto) 1600 [place] # (Auto) 400 Eos # (Auto) 100 Baso # (Auto) 0 Sodium 140 Potassium 4.4 Chloride 109 H Carbon Dioxide 29 BUN 11 Creatinine 0.81 Estimated GFR > 60.0 BUN/Creatinine Ratio 13.6 Glucose 93 Calcium 8.8 Magnesium 2.2 [facility] Medical History Headache, migraine History of UTI Weakness of left upper extremity Surgical History H/O breast augmentation H/O wisdom tooth extraction H/O: Hx of shoulder surgery Social History household members: spouse and children Smoking Status: Never smoker alcohol intake: never Discharge Plan Discharge Plan Patient Disposition: Home Provider Discharge Comment: You are being discharged home. You have small pulmonary emboli or blood clots in your lungs. It is unclear what caused your blood clots but possibly your contraceptive which has been discontinued. You may use condoms for contraception and consider an IUD which does not place you at risk of blood clots. You may want to consider a genetic workup for blood clots with your primary care physician. You have been prescribed anticoagulation with Eliquis 5 mg twice daily which will need to be continued for a total of 3 months. Please follow-up with your primary care physician at the [facility] regarding your hospitalization and for continued treatment of your blood clots. Discharge orders & Medications Prescriptions: New Eliquis 5 mg Tablet 5 mg PO BID Qty: 60 RF: 0 tramadol 50 mg Tablet 50 mg PO QD-TID PRN (Reason: Pain, Moderate (4-6)) Qty: 10 RF: 0 Continued Elmiron 100 mg Capsule 100 mg PO DAILY RF: 0 clonidine HCl 0.1 mg Tablet 0.2 mg PO QPM RF: 0 trazodone 50 mg Tablet 25 mg PO BEDTIME RF: 0 venlafaxine [Effexor XR] 150 mg Capsule,Extended Release 24hr 150 mg PO BEDTIME RF: 0 Discontinued norgestimate-ethinyl estradiol [Previfem] 0.25-35 mg-mcg tablet 1 tab PO DAILY RF: 0 Follow up/Referrals: Bandar Briggs ARNP [Primary Care Provider] - 1 Week Diet/Activity/Treatments Diet: Diet as Tolerated Activity: Activity as tolerated Visit Report/Discharge Packet Instructions: DI for Pulmonary Embolism, Tramadol, Apixaban Discharge Data Primary Care Provider: Bandar Briggs Attending Provider: Paty Courtney VTE Deep Vein Thrombosis/Pulmonary Embolism Present on Admission: No
--- NOTE | 2020-05-03 09:00 | DI.ECHO.S_ITS ---
[facility]---------+ [facility] +---------+ : : [address] [place] : : : : [id number] : : : : Phone: [phone]---------+ Echocardiogram Report + + :Name: STEVIE BELLE Study Date: 05/03/2020 Height: 66 in : :[facility] Weight: 130 lb : : Gender: Female BSA: 1.7 m2 : :: 1980 Age: 39 yrs BP: 131/77 mmHg: :Reason For Study: RIGHT SIDED PE : :Ordering Physician: Tono PAIZformed By: Radha Cee : :Referring: BIJAN PAIZ : + + Interpretation Summary 1) Normal left ventricular thickness, size, wall motion, and systolic function (EF 55-60%). 2) Normal right ventricular size and function. 3) No significant valvular abnormalities. 4) The right ventricular systolic pressure is estimated to be at least 31 mmHg based on an estimated right atrial pressure of 8 mm Hg. 5) No prior Echo available for comparison. Procedure: A two-dimensional transthoracic echocardiogram with color flow and Doppler was performed in limited views only. There is no prior echocardiogram noted for this patient. The patient was in sinus rhythm with heart rates between 69-78 bpm during the exam. Left Ventricle: The left ventricle is normal in size and wall thickness. The ejection fraction is estimated to be 55-60%. Diastolic parameters suggest probable normal left ventricular diastolic function and normal filling pressures. Right Ventricle: The right ventricle is normal in size and function. Atria: Both atria are normal in size. There is no Doppler evidence for an interatrial shunt. Mitral Valve: The mitral valve is normal in structure and function. There is mild mitral regurgitation. Aortic Valve: The aortic valve opens well. The aortic valve is trileaflet. There is no aortic valve stenosis. No aortic regurgitation is present. Tricuspid Valve: The tricuspid valve is normal in structure and function. There is mild tricuspid regurgitation. The right ventricular systolic pressure is estimated to be at least 31 mmHg based on an estimated right atrial pressure of 8 mm Hg. Pulmonic Valve: The pulmonic valve leaflets are thin and pliable; valve motion is normal. There is no pulmonic valvular regurgitation. Great Vessels: The aortic root is normal size. The ascending aorta could not be visualized. The IVC is of normal diameter and collapses less than 50% with a sniff. This suggests a right atrial pressure of 8 mm Hg. Pericardium/ Pleura There is no pericardial effusion. There is no pleural effusion. MMode/2D Measurements & Calculations LVIDd: 4.3 cm LVOT diam: 2.0 cm LVIDs: 2.9 cm Ao root diam: 2.7 cm FS: 31.9 % Ao Arch Diam (Prox Trans): 2.0 cm EPSS: 0.75 cm IVSd: 0.55 cm LVPWd: 0.66 cm LV clement. diameter/BSA (cm/m^2): 2.6 LV sys. diameter/BSA (cm/m^2): 1.7 LA A2 area: 18.2 cm2 RA long axis: 3.9 cm LA A4 area: 15.8 cm2 RA area: 12.6 cm2 LA length (vol): 5.1 cm RA vol: 35.1 ml LA vol: 48.2 ml RA : 21.1 ml/m2 LA vol index: 28.9 ml/m2 IVC diam: 1.6 cm RVD1 (basal): 3.3 cm TAPSE: 2.1 cm Doppler Measurements & Calculations Ao V2 max: 112.1 cm/sec LVOT Max Paulo: 71.6 cm/sec Ao V2 mean: 74.8 cm/sec LV V1 max P.1 mmHg Ao max P.0 mmHg LV V1 VTI: 16.0 cm Ao mean P.6 mmHg MARIO(I,D): 2.1 cm2 Ao V2 VTI: 23.6 cm MARIO(V,D): 2.0 cm2 sev ratio: 0.68 MARIO indexed to BSA (cm^2/m^2): 1.3 MV E max paulo: 74.6 cm/sec TR max paulo: 239.0 cm/sec MV A max paulo: 47.8 cm/sec TR max P.8 mmHg MV E/A: 1.6 PA V2 max: 66.5 cm/sec Med Peak E' Paulo: 11.0 cm/sec PA V2 mean: 42.5 cm/sec E/E' med: 6.8 PA mean P.85 mmHg Lat Peak E' Paulo: 17.0 cm/sec PA pr(Accel): 13.9 mmHg E/E' lat: 4.4 E/e' average: 5.6 MV dec time: 0.18 sec SV(LVOT): 49.4 ml Reading Physician:02:59 PM
--- NOTE | 2020-05-03 09:07 | PC.NURSE ---
Assess- Patient complained of pain to r.shoulder and back, given Tramadol by bull float finisher and she states that her pain is better. Patients lung sounds to r.upper lobes are absent and diminished, all other quadrants wnl. She's independent in her room, and will be discharged after her ECHO.
--- NOTE | 2020-05-03 10:58 | CM.DPC ---
DCP/continued: Reviewed chart. Spoke with provider in AM rounds, she reports that patient will be discharging today after ECHO completed. Dr. Heck notified that patient's copay for Eliquis is $33.00 (per notes from yesterday). Per Dr. Heck patient with no additional d/c planning needs. P: Home today. SKIP Sadler
== END 2020-05-03 10:55 | disposition home or self-care (01) ==
LOC: ED 05-02 02:04 → AC 05-02 02:08
PROVIDERS: Admitting Provider Nurse Practitioner Family; Emergency Provider Emergency Medicine; PCP Registered Nurse Diabetes Educator; Referring Provider Emergency Medicine; Visit Provider Nurse Practitioner Family
DX: I26.99 Other pulmonary embolism without acute cor pulmonale (principal); M25.511 Pain in right shoulder; R73.03 Prediabetes; Z79.3 Long term (current) use of hormonal contraceptives; Z11.59 Encounter for screening for other viral diseases
CPT/HCPCS: 36415; 71045; 71275; 74177; 76705; 80048; 80053; 82550; 82962; 83036; 83690; 83735; 84484; 85025; 85610; 85730; 87635; 93005; 93010; 93306; 93880; 93970; 96361; 96374; 96375; 99284; G0378; J1170; J1650; J1885; J2270; J2405; Q9967

== ENCOUNTER → 2020-06-15 15:20 | Oncology outpatient (ONC) | payer OTHER, SELFPAY ==
[2020-05-02 03:21] VITALS: BMI 20.9
[2020-06-15 16:04] VITALS: BP 128/81; PULSE 75; RESP 16; TEMP 35.9
--- NOTE | 2020-06-15 16:13 | ONC.CONS ---
History of Present Illness - Data of Consult Patient: new to practice Consult date: 06/15/20 Requesting Physician: OMID Gottlieb Primary Care Provider: OMID Gottlieb - Consult Narrative Reason for consult: Pulmonary embolism Narrative: Florinda Dimas is a 39 year old female. She is a never smoker. She presented with sharp right shoulder and right lateral lower chest pain on 05/01/2020. She could not lay down, and could not take deep breath. But she did not have fever or chills, did not have nausea or vomiting. She was evaluated at ER. CT abdomen/pelvis showed anterolateral right lower lobe consolidation. CTA showed multiple small right lower lobe pulmonary emboli with consolidation concerning for infarct, and left lower lobe subsegmental embli. Lower leg Doppler showed no evidence of lower extremity venous thrombosis. She stayed in the hospital for 2 nights. She was initially treated with lovenox and then transitioned to Eliquis 5 mg bid. After discharge from the hospital, she was seen by Dr. Agrawal of Pulmonology and Critical Care at [facility]. She underwent hypercoagulable work: Factor V Leiden not detected, ATII normal, Homocysteine normal, Protein C deficiency profile normal and prostein S panel is in process. She feels her symptom are improving, but she is still having mild sob. She admitted to using control pills for 15 years. She denies any long distance travel. She denies any weight loss. After the diagnosis of PE, she has stopped oral contraceptive pills. CC: Nida Aaron MD Home Medications and Allergies Home Medications Medication Instructions Recorded Confirmed Type Elmiron 100 mg PO DAILY 11/22/17 05/02/20 History clonidine HCl 0.2 mg PO QPM 11/22/17 05/02/20 History trazodone 25 mg PO BEDTIME 05/02/20 05/02/20 History venlafaxine [Effexor XR] 150 mg PO BEDTIME 05/02/20 05/02/20 History apixaban [Eliquis] 5 mg PO BID #60 tab 05/03/20 Rx Allergies Allergy/AdvReac Type Severity Reaction Status Date / Time wheat dextrin Allergy Severe Abdominal Verified 05/02/20 03:56 Pain Sulfa (Sulfonamide Allergy Unknown Rash Verified 05/02/20 03:56 Antibiotics) [SULFA (SULFONAMIDE ANTIBIOTICS)] Medical History - Medical, Surgical, Family History Medical History: Medical History (Last Updated 06/15/20 @ 16:20 by Nida Aaron MD) Celiac disease Headache, migraine History of UTI Weakness of left upper extremity Surgical History: Surgical History (Last Reviewed 05/02/20 @ 06:19 by OMID Logan) H/O breast augmentation H/O wisdom tooth extraction H/O: Hx of shoulder surgery Family History: Family History (Last Updated 06/15/20 @ 16:19 by Nida Aaron MD) Unknown Breast cancer - Social History Smoking Status: Never smoker Substance Use Type: does not use Alcohol Intake: never Review of Systems - Patient Self-Reported Symptoms SR respiratory issues: Shortness of breath SR Cardiovascular issues: Shortness of breath with activity or lying flat SR Musculoskeletal issues: Cold hands or feet SR Neuro issues: Lightheaded/dizzy All systems PM: reviewed and no additional remarkable complaints except as stated Exam Vital signs: Vital Signs Temp Pulse Resp BP 06/15/20 16:04 96.6 F L 75 16 128/81 Intake and Output 06/15/20 06/15/20 06/15/20 07:59 15:59 23:59 Other: Weight 58.1 kg Patient Weight 06/15/20 23:59 Weight 58.1 kg - Constitutional positive no acute distress, positive average body habitus, positive cooperative - Routine HEENT Exam Head: Present: normocephalic, atraumatic Eye: Present: EOMI, PERRL, normal accommodation. Absent: conjunctival icterus - Routine Neck Exam Present: supple. Absent: lymphadenopathy, thyromegaly - Routine Chest/Breast/Axilla Exam Axillae: Absent: lymphadenopathy - Routine Respiratory Exam Present: Clear to auscultation bilaterally. Absent: wheezes - Routine Cardiovascular Exam Present: RRR, S1, S2. Absent: murmur, gallop, rubs - Routine Abdominal Exam Present: soft. Absent: tenderness, distended, organomegaly - Routine Extremities Exam Absent: edema - Routine Neurological Exam Present: alert, oriented X3, CN II-XII intact. Absent: sensory deficit, motor deficit - Routine Psychiatric Exam Present: normal affect Results - Labs Reviewed labs from 05/01/2020 and 05/02/2020. Assessment and Plan (1) Pulmonary embolism 39-year-old female with recently diagnosed bilateral pulmonary embolism. Patient currently is on anticoagulation with Eliquis 5 mg twice daily. Patient has tolerated well. The clinical symptoms have been improving but still she is having some shortness of breath. Patient recently was also evaluated by Dr. Agrawal at [facility]. Initial screening workup for hypercoagulable states showed that Factor V Leiden not detected, ATII normal, Homocysteine normal, Protein C deficiency profile normal and protein S panel is in process. I talked with the patient that in my opinion, most likely the pulmonary embolism is related to the use of the control pill. Assuming that no protein S deficiency is identified, I recommend that patient stay off the control pill and continue full anticoagulation for a total length of 6 months and re-evaluate. Patient may be able to be discontinued on the treatment. If the protein S deficiency comes back positive, the patient then should be on anticoagulation lifelong. Patient was asking if the physician at [facility] can manage, I think it would be totally fine. Patient said that she is going to discuss with her primary care provider and will call us for follow-up visit. Plan: Continue Eliquis 5 mg bid RTC pending patient's decision.
== END ==
PROVIDERS: PCP Nurse Practitioner Family; Referring Provider Nurse Practitioner Family; Visit Provider Internal Medicine Hematology & Oncology
DX: I26.99 Other pulmonary embolism without acute cor pulmonale (principal); Z79.01 Long term (current) use of anticoagulants; Z79.3 Long term (current) use of hormonal contraceptives
CPT/HCPCS: 99204; 99214

== ENCOUNTER → 2020-07-11 13:20 | Outpatient (CLI) | payer OTHER, SELFPAY ==
[2020-05-02 03:21] VITALS: BMI 20.9
--- NOTE | 2020-07-11 13:22 | DI.MG.S_ITS ---
BILATERAL DIGITAL SCREENING MAMMOGRAM 3D/2D WITH CAD WITH AUGMENTATION: 07/11/2020 CLINICAL: Routine screening. Baseline exam. Family history of breast cancer. No prior exams were available for comparison. The tissue of both breasts is heterogeneously dense. This may lower the sensitivity of mammography. Current study was also evaluated with a Computer Aided Detection (CAD) system. Bilateral breast implants are present. No significant masses, calcifications, or other findings are seen in either breast. IMPRESSION: NEGATIVE There is no mammographic evidence of malignancy. A 1 year screening mammogram is recommended. This exam was interpreted at Station ID: [id number]. NOTE: For mammograms, a report in lay terms will be sent to the patient. Approximately 15% of breast malignancies will not be visualized mammographically. In the management of a palpable breast mass, a negative mammogram must not discourage biopsy of a clinically suspicious lesion. Electronically Signed By: Reece romo/isamar:07/13/2020 08:11:38 letter sent: Normal Exam ACR BI-RADS Category 1: Negative [id number]
== END ==
PROVIDERS: PCP Nurse Practitioner Family; Referring Provider Nurse Practitioner Family; Visit Provider Nurse Practitioner Family
DX: Z12.31 Encounter for screening mammogram for malignant neoplasm of breast (principal); Z80.3 Family history of malignant neoplasm of breast
CPT/HCPCS: 77063; 77067

== ENCOUNTER 2021-10-20 09:06 | Emergency (ER) | payer OTHER, SELFPAY ==
[2020-05-02 03:21] VITALS: BMI 20.9
[2021-10-20] VITALS (11 sets, daily range): BP systolic 118–135; BP diastolic 70–100; PULSE 60–80; RESP 12–21; TEMP 36.6; O2SAT 95–100; BMI 20.9
--- NOTE | 2021-10-20 09:13 | DI.RAD.S_ITS ---
PROCEDURE: XR CHEST 1V INDICATIONS: chest pain TECHNIQUE: One view of the chest was acquired. COMPARISON: [facility], CR, XR CHEST 1V, 05/01/2020, 19:43. FINDINGS: Surgical changes and devices: None. Lungs and pleura: Lungs are clear. No pleural effusions or pneumothorax. Mediastinum: Mediastinal contours appear normal. Heart size is normal. Bones and chest wall: No suspicious bony lesions. Overlying soft tissues appear unremarkable. IMPRESSION: No acute pulmonary process. Dictated by: Lizbeth Matthews M.D. on 10/20/2021 at 9:31 Approved by: Lizbeth Matthews M.D. on 10/20/2021 at 9:31
--- NOTE | 2021-10-20 09:44 | ED.CHESTPAIN ---
HPI - Chest Pain General Chief Complaint: Chest Pain Stated Complaint: Chest pain since monday, jaw pain, nausea Time Seen by Provider: 10/20/21 09:43 Source: patient Mode of arrival: Ambulatory Limitations: no limitations Limitations: no limitations History of Present Illness HPI narrative: This is a 40-year-old female who comes to the emergency department with complaint of left-sided chest into her left arm and left jaw starting proceeding through the weekend worsened Monday and is improved today but is still present. Patient states it has not been constant it will occasionally go away. Exertion does seem to make it worse. Nothing seems to make it go away. She does state that of her upper extremity does cause pain in the shoulder. She states it will last several hours at a time. She denies fevers. No cold, cough or congestion. She states she has been nauseated she has had some diarrhea intermittently but no black or bloody stools. She has had a decreased appetite. She has had shortness of breath with her symptoms. No syncope or lightheadedness. She denies any abdominal pain except when she has diarrhea. No new swelling in her extremities. No rashes. Patient has had a sense of impending doom. Patient has had blood clots in the past she states they related them to be her being on oral contraceptives. She has diagnosis in April of 2020 she was on Eliquis for 7 months and then stopped. She does take medication including trazodone, clonidine, Effexor for mood and anxiety and Elmiron for interstitial cystitis. Patient has had prior left shoulder surgery, and breast augmentation. She is allergic to sulfa, no tobacco, alcohol or illicit. She has not any oral contraceptives or estrogen/progesterone. Family history she has a brother who from drug overdose, sister with depression. She has a grandfather with angina but no cardiac, blood clot or pulmonary history known. Patient has not had any long distance travel or sedentary periods. Related Data Home Medications Medication Instructions Recorded Confirmed clonidine HCl 0.1 mg tablet 0.2 mg PO QPM 11/22/17 05/02/20 pentosan polysulfate sodium 100 mg 100 mg PO DAILY 11/22/17 05/02/20 capsule (Elmiron) trazodone 50 mg tablet 25 mg PO BEDTIME 05/02/20 05/02/20 venlafaxine 150 mg 150 mg PO BEDTIME 05/02/20 05/02/20 capsule,extended release 24 hr (Effexor XR) Previous Rx's Medication Instructions Recorded apixaban 5 mg tablet (Eliquis) 5 mg PO BID #60 tab 05/03/20 famotidine 40 mg tablet (Pepcid) 40 mg PO DAILY #30 tab 10/20/21 hydrocodone 5 mg-acetaminophen 325 1 tab PO Q6H PRN #10 tab 10/20/21 mg tablet Allergies Allergy/AdvReac Type Severity Reaction Status Date / Time wheat dextrin Allergy Severe Abdominal Verified 10/20/21 09:13 Pain Sulfa (Sulfonamide Allergy Unknown Rash Verified 10/20/21 09:13 Antibiotics) [SULFA (SULFONAMIDE ANTIBIOTICS)] Review of Systems Review of Systems ROS Unobtainable: All systems reviewed & are unremarkable except as noted in HPI and below Patient History Medical History Celiac disease Headache, migraine History of UTI Weakness of left upper extremity Surgical History H/O breast augmentation H/O wisdom tooth extraction H/O: Hx of shoulder surgery Family History Unknown Breast cancer Social History household members: spouse and children Smoking Status: Never smoker alcohol intake: never substance use type: does not use Smoking Status: Never smoker alcohol intake frequency: holidays/special occasions only Substance Use Type: does not use Exam Narrative Exam Narrative: GENERAL: Alert and oriented x three, thin female in mild distress. HEENT: Head normocephalic, atraumatic, EOMI, pupils reactive, face symmetric, moist mucous membranes NECK: Supple, full range of motion CARDIOVASCULAR: Regular rate and rhythm without murmurs, rubs or gallops. No JVD. No swelling bilateral extremities. RESPIRATORY: Breath sounds equal bilaterally, no wheezes rales or rhonchi. ABDOMEN: Soft, nontender. Normoactive bowel sounds all 4 quadrants. No guarding or rebound, rigidity, no mass : No CVA tenderness BACK: No cervical, thoracic or lumbar vertebral point tenderness. Patient notes some muscle tightness on the left side which I do appreciate. Patient has normal range of motion. Patient's gait is normal. Muscle strength is 5/5 in upper and lower extremities, 2+ radial pulses bilaterally. Sensation is intact in the upper and lower extremities. EXTREMITIES: Normal range of motion, no clubbing or edema. Neurovascularly intact. NEUROLOGICAL: Cranial nerves II through XII grossly intact. Moving all extremities SKIN: Warm, dry, no petechiae, no rashes or lesions on torso back or arm. Initial Vital Signs Initial Vital Signs: Vital Signs Temperature 97.9 F 10/20/21 09:08 Pulse Rate 80 10/20/21 09:08 Respiratory Rate 12 10/20/21 09:08 Blood Pressure 133/98 H 10/20/21 09:08 Pulse Oximetry 95 10/20/21 09:08 Scores HEART Score Heart Score history: Moderately Suspicious Heart Score EKG: Significant ST depression Heart Score Age: < 45 years old Heart Score risk factors: No known risk factors PERC Score Age greater than or equal to 50 years: No Heart rate greater than or equal to 100 bpm: No Room Air O2 Sat less than 95%: No Unilateral leg swelling: No Recent trauma or surgery: No Hemoptysis: No Prior PE or DVT: Yes Hormone Use: No Total PERC Score: 1 Course Orders Ordered: ED Orders 10/20/21 10:17 COVID19 -Nasal RAPID/Pre-Proc Stat 10/20/21 10:39 CT angio chest PE protocol Stat 10/20/21 11:30 Troponin I Stat Reevaluation(s) Reevaluation #1: Reviewed patient's findings up to this point. 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 Patient chest pain not gone but continues to improve. Discussed risk versus benefit with patient, she is open to CT angiography in could be appropriate. Plan for repeat troponin 2 hours from 1st and repeat EKG. Time: 10:40 Reevaluation #2: Reviewed patient's findings. Repeat troponin, EKG showed no acute changes, CT angio was negative for pulmonary emboli. No other acute or clear cause is found her her symptoms although she does states she has had some neck issues this may relate to the pain radiating down her arm. Plan for follow-up with primary care. Return precautions. She is concerned about developing ulcer and would like to start Pepcid prescription was provided. Vital Signs Vital signs: Vital Signs - 8 hr 10/20/21 10:30 10/20/21 10:55 10/20/21 11:00 Pulse Rate 65 68 64 Respiratory Rate 17 14 17 Blood Pressure 119/77 132/71 Pulse Oximetry 10/20/21 11:30 10/20/21 12:00 10/20/21 13:30 Pulse Rate 68 60 63 Respiratory Rate 16 12 18 Blood Pressure 118/70 Pulse Oximetry 100 MDM - Chest Pain Lab Data Result diagrams: 10/20/21 09:22 10/20/21 09:22 Labs: Lab Results 10/20/21 10/20/21 10/20/21 Range/Units 09:22 09:22 09:22 WBC 4.3 L (4.5-11.0) X10^3/uL RBC 4.12 (4.0-5.2) X10^6/uL Hgb 12.8 (12.0-16.0) g/dL Hct 37.5 (36-46) % MCV 91.1 (80-100) fL MCH 31.2 (26-34) PG MCHC 34.3 (30-36) % RDW 14.0 (11.6-14.8) % Plt Count 252 (150-400) X10^3/uL Neut % (Auto) 45.7 L (50-75) % Lymph % (Auto) 43.6 H (25-40) % [place] % (Auto) 8.6 (3-14) % Eos % (Auto) 1.6 L (2-4) % Baso % (Auto) 0.5 (0-2) % Neut # (Auto) 2000 (8743-2915) /uL Lymph # (Auto) 1900 (4990-2396) /uL [place] # (Auto) 400 (0-900) /uL Eos # (Auto) 100 (0-450) /uL Baso # (Auto) 0 (0-100) /uL PT 11.4 (10.1-12.7) SECONDS INR 1.0 (0.9-1.3) APTT 32 (26.4-36.2) SECONDS D-Dimer (<230) ng/mL Sodium 140 (137-145) mmol/L Potassium 3.9 (3.4-5.1) mmol/L Chloride 105 (98-107) mmol/L Carbon Dioxide 27 (22-32) mmol/L BUN 12 (7-17) mg/dL Creatinine 0.76 (0.52-1.04) mg/dL Estimated GFR > 60 (>60) mL/min BUN/Creatinine Ratio 15.8 (6-22) Glucose 100 (70-100) mg/dL Calcium 9.4 (8.4-10.2) mg/dL Magnesium 2.1 (1.6-2.3) mg/dL Total Bilirubin 0.5 (0.2-1.3) mg/dL AST 34 (14-36) IU/L ALT 19 (<35) IU/L Alkaline Phosphatase 47 (38-126) U/L Total Creatine Kinase 56 (30-135) U/L CK-MB (CK-2) TNP CK-MB (CK-2) Rel Index TNP Troponin I < 0.012 (0.01-0.034) ng/mL NT-Pro-B Natriuret Pep (<125) pg/mL Total Protein 7.7 (6.3-8.2) g/dL Albumin 4.8 (3.5-5.0) g/dL Globulin 2.9 (1.7-4.1) g/dL Albumin/Globulin Ratio 1.7 (1.0-2.8) Lipase 162 (23-300) U/L SARS-CoV-2 (PCR) (Negative) 10/20/21 10/20/21 10/20/21 Range/Units 09:22 09:22 10:17 WBC (4.5-11.0) X10^3/uL RBC (4.0-5.2) X10^6/uL Hgb (12.0-16.0) g/dL Hct (36-46) % MCV (80-100) fL MCH (26-34) PG MCHC (30-36) % RDW (11.6-14.8) % Plt Count (150-400) X10^3/uL Neut % (Auto) (50-75) % Lymph % (Auto) (25-40) % [place] % (Auto) (3-14) % Eos % (Auto) (2-4) % Baso % (Auto) (0-2) % Neut # (Auto) (5935-7636) /uL Lymph # (Auto) (6026-9817) /uL [place] # (Auto) (0-900) /uL Eos # (Auto) (0-450) /uL Baso # (Auto) (0-100) /uL PT (10.1-12.7) SECONDS INR (0.9-1.3) APTT (26.4-36.2) SECONDS D-Dimer < 200 (<230) ng/mL Sodium (137-145) mmol/L Potassium (3.4-5.1) mmol/L Chloride (98-107) mmol/L Carbon Dioxide (22-32) mmol/L BUN (7-17) mg/dL Creatinine (0.52-1.04) mg/dL Estimated GFR (>60) mL/min BUN/Creatinine Ratio (6-22) Glucose (70-100) mg/dL Calcium (8.4-10.2) mg/dL Magnesium (1.6-2.3) mg/dL Total Bilirubin (0.2-1.3) mg/dL AST (14-36) IU/L ALT (<35) IU/L Alkaline Phosphatase (38-126) U/L Total Creatine Kinase (30-135) U/L CK-MB (CK-2) CK-MB (CK-2) Rel Index Troponin I (0.01-0.034) ng/mL NT-Pro-B Natriuret Pep 205 H (<125) pg/mL Total Protein (6.3-8.2) g/dL Albumin (3.5-5.0) g/dL Globulin (1.7-4.1) g/dL Albumin/Globulin Ratio (1.0-2.8) Lipase (23-300) U/L SARS-CoV-2 (PCR) Negative (Negative) 10/20/21 Range/Units 11:30 WBC (4.5-11.0) X10^3/uL RBC (4.0-5.2) X10^6/uL Hgb (12.0-16.0) g/dL Hct (36-46) % MCV (80-100) fL MCH (26-34) PG MCHC (30-36) % RDW (11.6-14.8) % Plt Count (150-400) X10^3/uL Neut % (Auto) (50-75) % Lymph % (Auto) (25-40) % [place] % (Auto) (3-14) % Eos % (Auto) (2-4) % Baso % (Auto) (0-2) % Neut # (Auto) (9211-5063) /uL Lymph # (Auto) (4108-4919) /uL [place] # (Auto) (0-900) /uL Eos # (Auto) (0-450) /uL Baso # (Auto) (0-100) /uL PT (10.1-12.7) SECONDS INR (0.9-1.3) APTT (26.4-36.2) SECONDS D-Dimer (<230) ng/mL Sodium (137-145) mmol/L Potassium (3.4-5.1) mmol/L Chloride (98-107) mmol/L Carbon Dioxide (22-32) mmol/L BUN (7-17) mg/dL Creatinine (0.52-1.04) mg/dL Estimated GFR (>60) mL/min BUN/Creatinine Ratio (6-22) Glucose (70-100) mg/dL Calcium (8.4-10.2) mg/dL Magnesium (1.6-2.3) mg/dL Total Bilirubin (0.2-1.3) mg/dL AST (14-36) IU/L ALT (<35) IU/L Alkaline Phosphatase (38-126) U/L Total Creatine Kinase (30-135) U/L CK-MB (CK-2) CK-MB (CK-2) Rel Index Troponin I < 0.012 (0.01-0.034) ng/mL NT-Pro-B Natriuret Pep (<125) pg/mL Total Protein (6.3-8.2) g/dL Albumin (3.5-5.0) g/dL Globulin (1.7-4.1) g/dL Albumin/Globulin Ratio (1.0-2.8) Lipase (23-300) U/L SARS-CoV-2 (PCR) (Negative) Point of Care Testing Test Results Negative Urine Dip Bedside Urine Glucose Negative Bedside Urine Bilirubin - Negative Bedside Urine Ketone - Negative Urine Specific [place] 1.010 Bedside Urine Occult Blood +/- Bedside Urine pH 6.5 Bedside Urine Protein - Negative Bedside Urine Urobilinogen - Negative Bedside Urine Nitrite - Negative Bedside Urine Leukocytes - Negative Esterase Imaging Data Chest x-ray: Radiologist's Impression: Launch?Image [address] [address] XRay Report Signed Patient: Florinda Dimas MR#: [id number] : 1980 Acct:[id number] Age/Sex: 40 / F Date of Service: 10/20/21 Loc: ED Accession Number: [id number] ?? Procedure: XR chest 1V Ordering Provider: Ida Wong D.O. PROCEDURE:? XR CHEST 1V ? INDICATIONS:? chest pain ? TECHNIQUE:? One view of the chest was acquired.? ? COMPARISON:? [facility], CR, XR CHEST 1V, 05/01/2020, 19:43. ? FINDINGS:? ? Surgical changes and devices:? None.? ? Lungs and pleura:? Lungs are clear.? No pleural effusions or pneumothorax.? ? Mediastinum:? Mediastinal contours appear normal.? Heart size is normal.? ? Bones and chest wall:? No suspicious bony lesions.? Overlying soft tissues appear unremarkable.? ? IMPRESSION:? No acute pulmonary process. ? ? Dictated by: Lizbeth Matthews M.D. on 10/20/2021 at 9:31 ? ? Approved by: Lizbeth Matthews M.D. on 10/20/2021 at 9:31?? CT scan - chest: Radiologist's Impression: Florinda Dimas??40??F??1980 ? Allergy/Adv: wheat dextrin, Sulfa (Sulfonamide Antibiotics) (More??) Close Chest CTA (Signed) Lizbeth Matthews - 10/20/21 Chest X-Ray (Signed) Lizbeth Matthews - 10/20/21 Mammogram Screening (Signed) Reece Marshall - 07/11/20 Echocardiogram Ultrasound (Signed) Sol Tavares - 05/03/20 Vascular Ultrasound (Signed) Chalino Shirley - 05/02/20 Telemetry Strips 05/02/20 Chest CTA (Signed) Chalino Shirley - 05/02/20 Carotid Doppler Study (Signed) Shirley,Chalino - 05/02/20 Abdomen/Pelvis CT (Signed) EvaristoBedford - 05/01/20 Abdomen Ultrasound (Signed) Call,Nicola - 05/01/20 Chest X-Ray (Signed) Call,Nicola - 05/01/20 Launch?Image [address] [address] [address] Scan Report Signed Patient: Florinda Dimas MR#: [id number] : 1980 Acct:[id number] Age/Sex: 40 / F Date of Service: 10/20/21 Loc: ED Accession Number: [id number] ?? Procedure: CT angio chest PE protocol Ordering Provider: Ida Wong D.O. PROCEDURE:? CT ANGIO CHEST PE PROTOCOL ? INDICATIONS:? left chest/arm pain, hx blood clots in 2019 ? TECHNIQUE:? After the administration of intravenous contrast, 2 mm thick sections acquired from the pulmonary apices to the posterior costophrenic angles.? 3-dimensional maximum intensity projection (MIP) coronal and sagittal reformats were then acquired through the thorax.? For radiation dose reduction, the following was used:? automated exposure control, adjustment of mA and/or kV according to patient size.? ? COMPARISON:? [facility], CT, CT ANGIO CHEST PE PROTOCOL, 05/02/2020, 0:41. ? FINDINGS:? Image quality:? Excellent.? ? Pulmonary arteries:? Pulmonary arteries are normal in size, and demonstrate no intraluminal filling defects to suggest central pulmonary embolism.? ? Lungs and pleura:? Lungs are clear.? No pleural effusions or pneumothorax.? Central and peripheral airways are patent.? ? Mediastinum:? Heart size is normal, without pericardial effusion.? No mediastinal or hilar adenopathy.? Thoracic aorta is normal in caliber and enhancement.? Esophagus is normal in caliber, without hiatal hernia.? ? Bones and chest wall:? No suspicious bony lesions.? Ribs and thoracic spine appear intact throughout.? Thyroid gland is unremarkable.? Borderline enlarged bilateral axillary lymph nodes are present, unchanged compared to 05/02/2020. ? Abdomen:? Visualized upper abdominal solid organs appear normal in the early arterial phase of enhancement.? ? IMPRESSION:? ? No pulmonary embolism. ? No effusions or consolidations. ? Dictated by: Lizbeth Matthews M.D. on 10/20/2021 at 11:32 ? ? Approved by: Lizbeth Matthews M.D. on 10/20/2021 at 11:39 ECG Data Attestation: I personally reviewed and interpreted this ECG as follows: Prior ECG tracings: available for review Interpretation: Patient appears to be a sinus rhythm, incomplete right bundle branch. Which appears good prior EKG from 12/23/2019. ST depression in 1st beat of V4 V5 but not appreciated as well and subsequent beats. Rate of 70 NJ 112, QRS of 94 QTC of 421. No acute ST elevation or other ST changes appreciated from prior. EKG 2. Sinus rhythm rate of 60 P are 118 QRS of 96 and QTC of 428. No acute ST elevation depression noted incomplete right bundle-branch block. Patient does not have any acute ST changes appreciated MDM Narrative Medical decision making narrative: This is a 40-year-old female with complaint of left-sided chest pain and upper extremity pain patient has some increase of pain movement of the arm but left rib pain feels similar to when she had prior blood clots. Patient has prior risk factor was oral contraceptives, she is no longer on these. No other risk factors currently from her discussion. Chest x-ray shows no acute changes she does have some ST changes in V4 V5. Labs show no acute changes, COVID negative, troponin negative x2 with out acute or dynamic EKG changes. Patient's chest x-ray was negative CT angio was ordered despite negative D-dimer secondary to history of prior blood clots and some similar symptoms. This is negative without other acute changes. Patient did request prescription for Pepcid she is worried about having an ulcer. Discussed the only positive for left upper chest pain her pain but would happy to provide. Will do a short course of pain medication as needed and plan for follow-up with return precautions discussed. Discharge Plan Departure Patient Disposition: Home Clinical Impression: Chest pain Instructions: DI for Chest Pain Activity Restrictions/Additional Instructions: Follow-up with your physician for recheck. You may continue home medications as prescribed. You may take 1-2 tablets of [place] every 6 hours as needed for pain. This medication can make you sleepy do not drive, perform hazardous activities or make any major decisions while taking it. This medication will make you constipated please take a stool softener once to twice daily until stools are soft and regular. You may take Pepcid 40 mg 1 tablet daily. This often take several weeks to be effective. Prescription sent to [facility] pharmacy at [facility]. Please return for new or worsening symptoms, increasing chest pain, shortness of breath, passing out, persistent vomiting, new numbness, weakness or inability to move her extremity other new or concerning symptoms. Prescriptions: New hydrocodone-acetaminophen 5-325 mg tablet 1 tab PO Q6H PRN (Reason: pain) Qty: 10 0RF famotidine [Pepcid] 40 mg tablet 40 mg PO DAILY Qty: 30 0RF No Action Elmiron 100 mg Capsule 100 mg PO DAILY 0RF Rx Instructions: With water, 1 hour before or 2 hours after a meal clonidine HCl 0.1 mg Tablet 0.2 mg PO QPM 0RF trazodone 50 mg Tablet 25 mg PO BEDTIME 0RF venlafaxine [Effexor XR] 150 mg Capsule,Extended Release 24hr 150 mg PO BEDTIME 0RF Eliquis 5 mg Tablet 5 mg PO BID Qty: 60 0RF Referrals: Caro Hawk ARNP [Primary Care Provider] -
[2021-10-20 09:57] LABS: Add Manual Diff / Slide Review NO; Basophils Absolute Auto 0 /uL (0-100); Basophils Percent Auto 0.5 % (0-2); Eosinophils Absolute Auto 100 /uL (0-450); Eosinophils Percent Auto 1.6 % (2-4); Hematocrit 37.5 % (36-46); Hemoglobin 12.8 g/dL (12.0-16.0); Lymphocytes Absolute Auto 1900 /uL (1100-4500); Lymphocytes Percent Auto 43.6 % (25-40); Mean Corpuscular HGB Conc 34.3 % (30-36); Mean Corpuscular Hemoglobin 31.2 PG (26-34); Mean Corpuscular Volume 91.1 fL (80-100); Monocytes Absolute Auto 400 /uL (0-900); Monocytes Percent Auto 8.6 % (3-14); Neutrophils Absolute Auto 2000 /uL (1500-7000); Neutrophils Percent Auto 45.7 % (50-75); Platelet Count 252 X10^3/uL (150-400); Red Blood Cell Count 4.12 X10^6/uL (4.0-5.2); White Blood Cell Count 4.3 X10^3/uL (4.5-11.0)
[2021-10-20 09:59] LABS: Prothrombin Time 11.4 SECONDS (10.1-12.7)
[2021-10-20 10:02] LABS: PTT Partial Thromboplastin Tim 32 SECONDS (26.4-36.2)
[2021-10-20 10:05] LABS: Alanine Aminotransferase 19 IU/L (<35); Albumin 4.8 g/dL (3.5-5.0); Albumin Globulin Ratio 1.7 (1.0-2.8); Alkaline Phosphatase 47 U/L (38-126); Aspartate Aminotransferase 34 IU/L (14-36); BUN Creatinine Ratio 15.8 (6-22); Bilirubin Total 0.5 mg/dL (0.2-1.3); Blood Urea Nitrogen 12 mg/dL (7-17); Calcium 9.4 mg/dL (8.4-10.2); Carbon Dioxide 27 mmol/L (22-32); Chloride 105 mmol/L (98-107); Creatine Kinase 56 U/L (30-135); Estimated Glomerular Filt Rate > 60 mL/min (>60); Globulin 2.9 g/dL (1.7-4.1); Glucose 100 mg/dL (70-100); HEMOLYSIS 17 (0-50); Lipase 162 U/L (23-300); Magnesium 2.1 mg/dL (1.6-2.3); Potassium 3.9 mmol/L (3.4-5.1); Sodium 140 mmol/L (137-145); Total Protein 7.7 g/dL (6.3-8.2)
[2021-10-20 10:14] LABS: NT-proBNP (BNP-Adult 18+) 205 pg/mL (<125)
[2021-10-20 10:16] LABS: Troponin I < 0.012 ng/mL (0.01-0.034)
[2021-10-20 10:18] LABS: D Dimer < 200 ng/mL (<230)
--- NOTE | 2021-10-20 10:39 | DI.CT.S_ITS ---
PROCEDURE: CT ANGIO CHEST PE PROTOCOL INDICATIONS: left chest/arm pain, hx blood clots in 2020 TECHNIQUE: After the administration of intravenous contrast, 2 mm thick sections acquired from the pulmonary apices to the posterior costophrenic angles. 3-dimensional maximum intensity projection (MIP) coronal and sagittal reformats were then acquired through the thorax. For radiation dose reduction, the following was used: automated exposure control, adjustment of mA and/or kV according to patient size. COMPARISON: [facility], CT, CT ANGIO CHEST PE PROTOCOL, 05/02/2020, 0:41. FINDINGS: Image quality: Excellent. Pulmonary arteries: Pulmonary arteries are normal in size, and demonstrate no intraluminal filling defects to suggest central pulmonary embolism. Lungs and pleura: Lungs are clear. No pleural effusions or pneumothorax. Central and peripheral airways are patent. Mediastinum: Heart size is normal, without pericardial effusion. No mediastinal or hilar adenopathy. Thoracic aorta is normal in caliber and enhancement. Esophagus is normal in caliber, without hiatal hernia. Bones and chest wall: No suspicious bony lesions. Ribs and thoracic spine appear intact throughout. Thyroid gland is unremarkable. Borderline enlarged bilateral axillary lymph nodes are present, unchanged compared to 05/02/2020. Abdomen: Visualized upper abdominal solid organs appear normal in the early arterial phase of enhancement. IMPRESSION: No pulmonary embolism. No effusions or consolidations. Dictated by: Lizbeth Matthews M.D. on 10/20/2021 at 11:32 Approved by: Lizbeth Matthews M.D. on 10/20/2021 at 11:39
[2021-10-20 10:41] LABS: COVID19 -Nasal RAPID Negative (Negative)
[2021-10-20 12:24] LABS: Troponin I < 0.012 ng/mL (0.01-0.034)
== END 2021-10-20 13:33 | disposition home or self-care (01) ==
PROVIDERS: Emergency Provider Emergency Medicine; PCP Nurse Practitioner Family
DX: R07.9 Chest pain, unspecified (principal); R11.0 Nausea; R19.7 Diarrhea, unspecified; R06.02 Shortness of breath; Z20.822 Contact with and (suspected) exposure to COVID-19
CPT/HCPCS: 36415; 71045; 71275; 80053; 81003; 81025; 82550; 83690; 83735; 83880; 84484; 85025; 85379; 85610; 85730; 87635; 93005; 93010; 99284; C9803

== ENCOUNTER → 2022-07-04 09:16 | Outpatient (CLI) | payer OTHER, SELFPAY ==
[2020-05-02 03:21] VITALS: BMI 20.9
== END ==
PROVIDERS: PCP Nurse Practitioner Family; Visit Provider Nurse Practitioner Family
DX: N39.0 Urinary tract infection, site not specified (principal)
CPT/HCPCS: 87077; 87086; 87186

== ENCOUNTER → 2022-07-15 16:21 | Outpatient (CLI) | payer OTHER, SELFPAY ==
[2020-05-02 03:21] VITALS: BMI 20.9
== END ==
PROVIDERS: PCP Nurse Practitioner Family; Visit Provider Registered Nurse
DX: R30.0 Dysuria (principal)
CPT/HCPCS: 87086

== ENCOUNTER 2024-02-18 02:49 | Emergency (ER) | payer OTHER, SELFPAY ==
[2020-05-02 03:21] VITALS: BMI 20.9
[2024-02-18 03:23] VITALS: BP 108/69; PULSE 65; PULSE 70; RESP 16; TEMP 36.5; O2SAT 100; O2SAT 89; BMI 20.9
--- NOTE | 2024-02-18 03:34 | ED_ITS ---
HPI - Back Pain/Injury General Chief Complaint: Back Pain/Injury Stated Complaint: lower back pain Time Seen by Provider: 02/18/24 03:16 Source: patient Mode of arrival: Ambulatory History of Present Illness HPI Narrative: Patient is a 43-year-old female who couple weeks ago sustained an injury to her back when she states she bent over to pick something up. She states that she went to see a chiropractor afterwards which made the symptoms somewhat worse. She has been taking Tylenol and ibuprofen on a daily basis since that time. She has a follow-up with her primary doctor scheduled for 4 days from now. She states that her symptoms were improving somewhat over the past couple weeks and then yesterday went for a walk and once again bent over to pick something up in his now had increasing pain. Describes in the center of her lower back. His on her menstrual cycle. No urinary symptoms. Has been trying Voltaren cream. She was on methocarbamol for a left shoulder issue that she takes as needed. Related Data Home Medications Medication Instructions Recorded Confirmed clonidine HCl 0.1 mg tablet 0.2 mg PO QPM 11/22/17 05/02/20 pentosan polysulfate sodium 100 mg 100 mg PO DAILY 11/22/17 05/02/20 capsule (Elmiron) trazodone 50 mg tablet 25 mg PO BEDTIME 05/02/20 05/02/20 venlafaxine 150 mg 150 mg PO BEDTIME 05/02/20 05/02/20 capsule,extended release 24 hr (Effexor XR) Previous Rx's Medication Instructions Recorded apixaban 5 mg tablet (Eliquis) 5 mg PO BID #60 tabs 05/03/20 famotidine 40 mg tablet (Pepcid) 40 mg PO DAILY #30 tabs 10/20/21 hydrocodone 5 mg-acetaminophen 325 1 tab PO Q6H PRN pain #10 tabs 10/20/21 mg tablet phenazopyridine 200 mg tablet 200 mg PO TID 6 doses #6 tabs 07/04/22 (Pyridium) phenazopyridine 200 mg tablet 200 mg PO TID PRN pain 6 doses #6 07/15/22 (Pyridium) tabs cyclobenzaprine 10 mg tablet 10 mg PO TID PRN muscle spasm #14 02/18/24 tabs hydrocodone 5 mg-acetaminophen 325 1 tab PO Q4-6H PRN pain #10 tabs 02/18/24 mg tablet Allergies Allergy/AdvReac Type Severity Reaction Status Date / Time wheat dextrin Allergy Severe Abdominal Verified 10/20/21 09:13 Pain Sulfa (Sulfonamide Allergy Unknown Rash Verified 10/20/21 09:13 Antibiotics) [SULFA (SULFONAMIDE ANTIBIOTICS)] Review of Systems Review of Systems ROS Unobtainable: All systems reviewed & are unremarkable except as noted in HPI and below Patient History Medical History Celiac disease Headache, migraine Weakness of left upper extremity History of UTI Surgical History H/O breast augmentation H/O wisdom tooth extraction H/O: Hx of shoulder surgery Family History Unknown Breast cancer Social History household members: spouse and children Smoking Status: Never smoker alcohol intake: never substance use type: does not use Smoking Status: Never smoker alcohol intake frequency: holidays/special occasions only Substance Use Type: does not use Exam Initial Vital Signs Initial Vital Signs: Vital Signs Temperature 97.7 F 02/18/24 03:23 Pulse Rate 65 02/18/24 03:23 Respiratory Rate 16 02/18/24 03:23 Blood Pressure 108/69 02/18/24 03:23 Pulse Oximetry 100 02/18/24 03:23 Oxygen Delivery Method Room Air 02/18/24 03:23 Const General: cooperative, comfortable and No ill appearing HENME Head: normal to inspection and normocephalic Resp Effort & Inspection: normal respiratory effort Cardio Rate: regular rate Back/Spine/Pelvis Thoracic/Lumbar Spine: paraspinal tenderness (Lumbar region), No thoracic spinal tenderness and lumbar spinal tenderness Sacroiliac Joints: nontender Skin General: no rashes or lesions noted Neuro General: patient alert and patient awake Course Orders Ordered: Discontinued Medications Hydrocodone Bitart/Acetaminophen (Hydrocodone/Acet 5/325 Prepack) 1 bottle MISC DIRECTED ONE Stop: 02/18/24 03:35 Cyclobenzaprine HCl (Cyclobenzaprine 10 Mg Prepack) 1 bottle MISC DIRECTED ONE Stop: 02/18/24 03:35 Hydromorphone HCl (Hydromorphone 1 Mg Inj) 0.5 mg IM NOW ONE Stop: 02/18/24 03:35 Ketorolac Tromethamine (Ketorolac 30 Mg/Ml Vial) 30 mg IM NOW ONE Stop: 02/18/24 03:35 Vital Signs Vital signs: Vital Signs - 8 hr 02/18/24 03:23 Temperature 97.7 F Pulse Rate 65 Respiratory Rate 16 Blood Pressure 108/69 Pulse Oximetry 100 Oxygen Delivery Method Room Air MDM - Back Pain/Injury Lab Data Labs: Point of Care Testing Test Results Negative Urine Dip Bedside Urine Glucose Negative Bedside Urine Bilirubin - Negative Bedside Urine Ketone - Negative Urine Specific [place] 1.030 Bedside Urine Occult Blood ++ Bedside Urine pH 6.0 Bedside Urine Protein +/- 15 Bedside Urine Urobilinogen - Negative Bedside Urine Nitrite - Negative Bedside Urine Leukocytes - Negative Esterase MDM Narrative Medical decision making narrative: Symptoms are clearly musculoskeletal in origin. Low suspicion for fracture. No skin changes over the area. Her exam is not consistent with urinary tract infection/pyelonephritis/renal colic. No specific trauma. Recommend anti- inflammatories and other conservative measures to include medications. Will have her keep her appointment with her primary doctor on the . We can hold on imaging studies for now. Discharge Plan Departure Patient Disposition: Home Clinical Impression: Lumbar back pain Instructions: DI for Low Back Pain Activity Restrictions/Additional Instructions: Recommend that you continue to take all of your medications as directed. Keep your follow-up appointment with your primary doctor scheduled for the . Recommend that you continue with he denies and also light stretching. You can try [id number] lidocaine patches. A prescription for muscle relaxers was sent to the pharmacy of your choice. They should be instead of the meth ocarbamol/Robaxin that you have at home. Continue with the anti-inflammatories. Return to the emergency department for new symptoms. Prescriptions: New cyclobenzaprine 10 mg tablet 10 mg PO TID PRN (Reason: muscle spasm) Qty: 14 0RF hydrocodone-acetaminophen 5-325 mg tablet 1 tab PO Q4-6H PRN (Reason: pain) Qty: 10 0RF No Action phenazopyridine [Pyridium] 200 mg tablet 200 mg PO TID 0 Days Qty: 6 0RF phenazopyridine [Pyridium] 200 mg tablet 200 mg PO TID PRN (Reason: pain) Qty: 6 0RF Elmiron 100 mg Capsule 100 mg PO DAILY Rx Instructions: With water, 1 hour before or 2 hours after a meal clonidine HCl 0.1 mg Tablet 0.2 mg PO QPM trazodone 50 mg Tablet 25 mg PO BEDTIME venlafaxine [Effexor XR] 150 mg Capsule,Extended Release 24hr 150 mg PO BEDTIME Eliquis 5 mg Tablet 5 mg PO BID Qty: 60 0RF hydrocodone-acetaminophen 5-325 mg tablet 1 tab PO Q6H PRN (Reason: pain) Qty: 10 0RF famotidine [Pepcid] 40 mg tablet 40 mg PO DAILY Qty: 30 0RF Referrals: Caro Hawk ARNP [Primary Care Provider] - Stand Alone Forms: Patient Portal/API
[2024-02-18] MEDS: HYDROMORPHONE 1 MG INJ 0.5 MG IM (03:40)
[2024-02-18] MEDS: KETOROLAC 30 MG/ML VIAL IM (03:40)
[2024-02-18 03:41] VITALS: O2SAT 56
[2024-02-18] MEDS: HYDROCODONE/ACET 5/325 PREPACK 1 BOTTLE MISC (03:48)
[2024-02-18] MEDS: CYCLOBENZAPRINE 10 MG PREPACK 1 BOTTLE MISC (03:48)
== END 2024-02-18 03:54 | disposition home or self-care (01) ==
PROVIDERS: Emergency Provider Emergency Medicine; PCP Nurse Practitioner Family
DX: M54.50 Low back pain, unspecified (principal); Z79.01 Long term (current) use of anticoagulants
CPT/HCPCS: 81003; 81025; 96372; 99283; J1170; J1885

== ENCOUNTER 2024-03-13 05:23 | Emergency (ER) | payer OTHER, SELFPAY ==
[2020-05-02 03:21] VITALS: BMI 20.9
[2024-03-13 05:35] VITALS: BP 111/68; PULSE 77; RESP 15; TEMP 36.7; O2SAT 100; BMI 20.9
--- NOTE | 2024-03-13 05:35 | ED_ITS ---
HPI - General Adult General Chief complaint: Urogenital-Female Stated complaint: uti Time Seen by Provider: 03/13/24 05:27 Source: patient and RN notes reviewed Mode of arrival: Ambulatory Limitations: no limitations History of Present Illness HPI narrative: 43-year-old female who presents with complaint of dysuria, urgency and frequency, suprapubic pain with a little bit of flank pain on the left. Patient states no fevers. She has had some mild nausea. Denies any diarrhea or constipation, states she did start her period about 2 days ago. Patient states she has had UTIs in the past but has also had interstitial cystitis. States this feels like a UTI. She has had about 24 hours of symptoms was taking azo but pain became intense and came for evaluation. Patient states daily medications include Effexor and clonidine. Has had prior . States allergic to sulfa. No tobacco, no regular alcohol, no recreational drugs. Related Data Home Medications Medication Instructions Recorded Confirmed clonidine HCl 0.1 mg tablet 0.2 mg PO QPM 11/22/17 03/13/24 pentosan polysulfate sodium 100 mg 100 mg PO DAILY 11/22/17 03/13/24 capsule (Elmiron) guanfacine 1 mg tablet 1 mg PO BID 03/13/24 03/13/24 ipratropium bromide 21 mcg (0.03 1 spray intranasal PRN PRN Allergy 03/13/24 03/13/24 %) nasal spray Symptoms pantoprazole 40 mg tablet,delayed 40 mg PO DAILY 03/13/24 03/13/24 release trazodone 50 mg tablet 50 mg PO ONCE PM 03/13/24 03/13/24 venlafaxine 37.5 mg 37.5 mg PO DAILY 03/13/24 03/13/24 capsule,extended release 24 hr Previous Rx's Medication Instructions Recorded cyclobenzaprine 10 mg tablet 10 mg PO TID PRN muscle spasm #14 02/18/24 tabs ciprofloxacin HCl 500 mg tablet 500 mg PO Q12H #14 tabs 03/13/24 phenazopyridine 200 mg tablet 200 mg PO TID PRN pain 6 doses #6 03/13/24 (Pyridium) tabs Allergies Allergy/AdvReac Type Severity Reaction Status Date / Time wheat dextrin Allergy Severe Abdominal Verified 10/20/21 09:13 Pain Sulfa (Sulfonamide Allergy Unknown Rash Verified 10/20/21 09:13 Antibiotics) [SULFA (SULFONAMIDE ANTIBIOTICS)] Review of Systems Review of Systems ROS Unobtainable: All systems reviewed & are unremarkable except as noted in HPI and below Patient History Medical History Celiac disease Headache, migraine Weakness of left upper extremity History of UTI Surgical History H/O breast augmentation H/O: H/O wisdom tooth extraction Hx of shoulder surgery Family History Unknown Breast cancer Social History household members: spouse and children Smoking Status: Never smoker alcohol intake: never substance use type: does not use Smoking Status: Never smoker alcohol intake frequency: holidays/special occasions only Substance Use Type: does not use Exam Narrative Exam Narrative: GENERAL: Alert and oriented x three, female in mild distress. HEENT: Head normocephalic, atraumatic, EOMI, pupils reactive, face symmetric, moist mucous membranes NECK: Supple, full range of motion CARDIOVASCULAR: Regular rate and rhythm without murmurs, rubs or gallops. RESPIRATORY: Breath sounds equal bilaterally, no wheezes rales or rhonchi. ABDOMEN: Soft, nontender. Normoactive bowel sounds all 4 quadrants. No guarding or rebound, rigidity, no mass : No CVA tenderness bilaterally. EXTREMITIES: Normal range of motion, no clubbing or edema. Neurovascularly intact NEUROLOGICAL: Cranial nerves II through XII grossly intact. Moving all extremities SKIN: Warm, dry, no petechiae, no rashes or lesions. Initial Vital Signs Initial Vital Signs: Vital Signs Temperature 98.1 F 03/13/24 05:35 Pulse Rate 77 03/13/24 05:35 Respiratory Rate 15 03/13/24 05:35 Blood Pressure 111/68 03/13/24 05:35 Pulse Oximetry 100 03/13/24 05:35 Oxygen Delivery Method Room Air 03/13/24 05:35 Course Orders Ordered: ED Orders 03/13/24 05:35 Urine Culture Stat Urine Microscopic Stat Discontinued Medications Ciprofloxacin (Ciprofloxacin 250 Mg Tablet) 500 mg PO NOW ONE Stop: 03/13/24 05:55 Last Admin: 03/13/24 05:57 Dose: 500 mg Ibuprofen (Ibuprofen 400 Mg Tablet) 800 mg PO NOW ONE Stop: 03/13/24 05:33 Last Admin: 03/13/24 05:45 Dose: 800 mg Phenazopyridine HCl (Phenazopyridine 100 Mg Tablet) 200 mg PO NOW ONE Stop: 03/13/24 05:33 Last Admin: 03/13/24 05:45 Dose: 200 mg Vital Signs Vital signs: Vital Signs - 8 hr 03/13/24 05:35 Temperature 98.1 F Pulse Rate 77 Respiratory Rate 15 Blood Pressure 111/68 Pulse Oximetry 100 Oxygen Delivery Method Room Air Medical Decision Making Lab Data Labs: Lab Results 03/13/24 Range/Units 05:35 Urine RBC >100/hpf H (0-5/HPF) Urine WBC 1-5/hpf (0-5/HPF) Ur Squamous Epith Cells 1-5 /hpf (0-5/HPF) Urine Bacteria Few (2-10) H (None) Ur Culture Indicated? Specimen cultured Vol Urine Centrifuged 10ml (spun) Point of Care Testing Test Results Negative Urine Dip Bedside Urine Glucose Negative Bedside Urine Bilirubin - Negative Bedside Urine Ketone - Negative Urine Specific [place] 1.025 Bedside Urine Occult Blood +++ Bedside Urine pH 6.0 Bedside Urine Protein ++ 100 Bedside Urine Urobilinogen - Negative Bedside Urine Nitrite + Positive Bedside Urine Leukocytes + 70 Esterase Point of care testing: Point of Care Testing Test Results Negative Urine Dip Bedside Urine Glucose Negative Bedside Urine Bilirubin - Negative Bedside Urine Ketone - Negative Urine Specific [place] 1.025 Bedside Urine Occult Blood +++ Bedside Urine pH 6.0 Bedside Urine Protein ++ 100 Bedside Urine Urobilinogen - Negative Bedside Urine Nitrite + Positive Bedside Urine Leukocytes + 70 Esterase MDM Narrative Medical decision making narrative: Point of care urine Urine Discharge Plan Departure Patient Disposition: Home Clinical Impression: UTI (urinary tract infection) Instructions: DI for Urinary Tract Infection (UTI) Activity Restrictions/Additional Instructions: Follow-up as needed. Take Pyridium 1 tablet every 8 hours as needed. Can take acetaminophen up to a 1000 mg every 6 hours and/or ibuprofen up to 600 mg every 6 hours as needed for pain. Take oral antibiotics until completed. Prescription sent to [facility]. Please return for fevers new or worsening abdominal back or flank pain, persistent vomiting, inability or difficulty with urination, black or bloody stools or other new or concerning changes. Prescriptions: New ciprofloxacin HCl 500 mg tablet 500 mg PO Q12H Qty: 14 0RF phenazopyridine [Pyridium] 200 mg tablet 200 mg PO TID PRN (Reason: pain) Qty: 6 0RF Discontinued phenazopyridine [Pyridium] 200 mg tablet 200 mg PO TID PRN (Reason: pain) Qty: 6 0RF No Action Elmiron 100 mg Capsule 100 mg PO DAILY Rx Instructions: With water, 1 hour before or 2 hours after a meal clonidine HCl 0.1 mg Tablet 0.2 mg PO QPM cyclobenzaprine 10 mg tablet 10 mg PO TID PRN (Reason: muscle spasm) Qty: 14 0RF guanfacine 1 mg tablet 1 mg PO BID ipratropium bromide 21 mcg (0.03 %) spray,non-aerosol 1 spray intranasal PRN PRN (Reason: Allergy Symptoms) trazodone 50 mg tablet 50 mg PO ONCE PM pantoprazole 40 mg tablet,delayed release (DR/EC) 40 mg PO DAILY venlafaxine 37.5 mg capsule,extended release 24hr 37.5 mg PO DAILY Referrals: Caro Hawk ARNP [Primary Care Provider] - Stand Alone Forms: Patient Portal/API
[2024-03-13] MEDS: IBUPROFEN 400 MG TABLET 800 MG PO (05:45)
[2024-03-13] MEDS: PHENAZOPYRIDINE 100 MG TABLET 200 MG PO (05:45)
[2024-03-13] MEDS: CIPROFLOXACIN 250 MG TABLET 500 MG PO (05:57)
[2024-03-13 06:04] LABS: Bacteria Urine Few (2-10); Culture Indicated Urine Specimen Cultured; RBC Urine >100/HPF (0-5/HPF); Squamous Epithelial Cell Urine 1-5 /HPF (0-5/HPF); Urine Volume 10mL (spun); WBC Urine 1-5/HPF (0-5/HPF)
== END 2024-03-13 06:05 | disposition home or self-care (01) ==
PROVIDERS: Emergency Provider Emergency Medicine; PCP Nurse Practitioner Family
DX: N39.0 Urinary tract infection, site not specified (principal); R11.0 Nausea
CPT/HCPCS: 81003; 81015; 81025; 87077; 87086; 87186; 99283

== ENCOUNTER 2025-05-19 05:08 | Emergency (ER) | payer OTHER, SELFPAY ==
[2020-05-02 03:21] VITALS: BMI 20.9
[2025-05-19 05:19] VITALS: BP 101/65; PULSE 83; RESP 17; TEMP 36.4; O2SAT 97; BMI 20.9
[2025-05-19 05:48] LABS: Appearance Urine UA CLOUDY; Bilirubin Urine UA NEGATIVE (NEGATIVE); Glucose Urine UA NEGATIVE (Negative); Ketones Urine UA 1+ (NEGATIVE); Leukocyte Esterase Urine UA TRACE (NEGATIVE); Nitrite Urine UA POSITIVE (Negative); Occult Blood Urine UA 3+ (Negative); Protein Urine UA 3+ (Negative); Specific Gravity Urine UA 1.020 (1.000-1.035); Urobilinogen Urine UA 0.2 E.U./dL (0.2)
[2025-05-19 05:51] LABS: Color Urine UA BROWN; pH Urine UA 6.5 (4.5-8.0)
[2025-05-19 05:52] LABS: Culture Indicated Urine Specimen Cultured
--- NOTE | 2025-05-19 06:05 | ED.FEMALEGU ---
HPI - Female Genitourinary General Chief complaint: Urogenital-Female Stated complaint: Poss UTI Time Seen by Provider: 05/19/25 05:11 Source: patient Mode of arrival: Ambulatory History of Present Illness HPI Narrative: 44-year-old female complains of painful urination with frequency of urination and pain around the urethra for the last few hours. History of previous urine infection, last urine infection about 1 year ago, no recent antibiotics. Denies flank pain, nausea, vomiting, fevers or chills. Related Data Home Medications ?Medication ?Instructions ?Recorded ?Confirmed clonidine HCl 0.1 mg tablet 0.2 mg PO QPM 11/22/17 05/19/25 pentosan polysulfate sodium 100 mg 100 mg PO DAILY 11/22/17 05/19/25 capsule (Elmiron) guanfacine 1 mg tablet 1 mg PO BID 03/13/24 05/19/25 ipratropium bromide 21 mcg (0.03 1 spray intranasal PRN PRN Allergy 03/13/24 05/19/25 %) nasal spray Symptoms pantoprazole 40 mg tablet,delayed 40 mg PO DAILY 03/13/24 05/19/25 release trazodone 50 mg tablet 50 mg PO ONCE PM 03/13/24 05/19/25 venlafaxine 37.5 mg 37.5 mg PO DAILY 03/13/24 05/19/25 capsule,extended release 24 hr Previous Rx's ?Medication ?Instructions ?Recorded cyclobenzaprine 10 mg tablet 10 mg PO TID PRN muscle spasm #14 02/18/24 tabs cephalexin 500 mg capsule 500 mg PO QID 7 days #28 caps 05/19/25 phenazopyridine 200 mg tablet 200 mg PO TID PRN pain #10 tabs 05/19/25 (Pyridium) Allergies Allergy/AdvReac Type Severity Reaction Status Date / Time wheat dextrin Allergy Severe Abdominal Verified 05/19/25 05:18 Pain Sulfa (Sulfonamide Allergy Unknown Rash Verified 05/19/25 05:18 Antibiotics) (SULFA (SULFONAMIDE ANTIBIOTICS)) Patient History Medical History Celiac disease Headache, migraine Weakness of left upper extremity History of UTI Surgical History H/O breast augmentation H/O: H/O wisdom tooth extraction Hx of shoulder surgery Family History Unknown Breast cancer Exam Narrative Exam Narrative: GENERAL: Well-developed patient, in mild distress. HEAD: Atraumatic. Normocephalic. EYES: Pupils equal round and reactive. Extraocular motions intact. No scleral icterus. No injection or drainage. ENT: Nose without bleeding, purulent drainage. Throat without erythema, tonsillar hypertrophy or exudate. Airway patent. NECK: Trachea midline. Non tender CARDIOVASCULAR: Regular rate and rhythm without murmurs, gallops, or rubs. RESPIRATORY: Clear to auscultation. Breath sounds equal bilaterally. No wheezes, rales, or rhonchi. GASTROINTESTINAL: Abdomen soft, non-tender, nondistended. EXTREMITIES: No edema or joint tenderness. BACK: Nontender without deformity or crepitance. No flank tenderness. NEURO: AOx3. Motor functions grossly nonfocal. SKIN: No rash or erythema of visible areas Initial Vital Signs Initial Vital Signs: Vital Signs Temperature 97.5 F L 05/19/25 05:19 Pulse Rate 83 05/19/25 05:19 Respiratory Rate 17 05/19/25 05:19 Blood Pressure 101/65 05/19/25 05:19 Pulse Oximetry 97 05/19/25 05:19 Oxygen Delivery Method Room Air 05/19/25 05:19 Course Orders Ordered: ED Orders 05/19/25 05:22 Urinalysis and Microscopic Stat Urine Culture Stat 05/19/25 05:48 Test Urine Stat Discontinued Medications Cephalexin HCl (Cephalexin 250 Mg Capsule) 500 mg PO NOW ONE Stop: 05/19/25 06:11 Last Admin: 05/19/25 06:18 Dose: 500 mg Documented By: AB Phenazopyridine HCl (Phenazopyridine 100 Mg Tablet) 200 mg PO NOW ONE Stop: 05/19/25 06:11 Last Admin: 05/19/25 06:18 Dose: 200 mg Documented By: AB Vital Signs Vital signs: Vital Signs - 8 hr 05/19/25 05:19 Temperature 97.5 F L Pulse Rate 83 Respiratory Rate 17 Blood Pressure 101/65 Pulse Oximetry 97 Oxygen Delivery Method Room Air MDM - Female Genitourinary Lab Data Labs: Lab Results 05/19/25 Range/Units 05:22 Urine Color Brown Urine Appearance Cloudy Urine pH 6.5 (4.5-8.0) Ur Specific [place] 1.020 (1.000-1.035) Urine Protein 3+ H (Negative) Urine Glucose (UA) Negative (Negative) g/dL Urine Ketones 1+ H (NEGATIVE) Urine Occult Blood 3+ H (Negative) Urine Nitrate Positive H (Negative) Urine Bilirubin Negative (NEGATIVE) Urine Urobilinogen 0.2 (0.2) E.U./dL Ur Leukocyte Esterase Trace H (NEGATIVE) Urine RBC >100/hpf H (0-5/HPF) Urine WBC 1-5/hpf (0-5/HPF) Ur Squamous Epith Cells 0-1 /hpf (0-5/HPF) Urine Bacteria Many (>30) H (None) Ur Culture Indicated? Specimen cultured Vol Urine Centrifuged 10ml (spun) Point of Care Testing Test Results Negative MDM Narrative Medical decision making narrative: 44-year-old female with UTI symptoms, afebrile, no back pain, no nausea or vomiting, no fevers or chills. test negative. Urinalysis suspicious for cystitis. Oral dose cephalexin, prescription cephalexin sent to her pharmacy. Oral dose Pyridium, prescription sent to her pharmacy. Discharged home. Return precautions discussed. Discharge Plan Departure Patient Disposition: Home Clinical Impression: Urinary tract infection Instructions: DI for Urinary Tract Infection (UTI) Activity Restrictions/Additional Instructions: Prior urinary tract infections, none recent. Painful frequent urination and pain around area of urethra, suspicious for urinary tract infection. test negative. Urinalysis suspicious for infection, with positive laboratory cells and bacteria, urine culture triggered. First dose antibiotic cephalexin given, and bladder analgesic Pyridium oral doses. Prescription for this medication sent to your pharmacy. Take medications as directed. Drink plenty of fluids. Recheck with your regular doctor if not improving in the next couple of days. Return to this/nearest emergency department for any change worsening symptoms or any concerns prior. Prescriptions: New cephalexin 500 mg capsule 500 mg PO QID 7 Days Qty: 28 0RF phenazopyridine [Pyridium] 200 mg tablet 200 mg PO TID PRN (Reason: pain) Qty: 10 0RF No Action Elmiron 100 mg Capsule 100 mg PO DAILY Rx Instructions: With water, 1 hour before or 2 hours after a meal clonidine HCl 0.1 mg Tablet 0.2 mg PO QPM cyclobenzaprine 10 mg tablet 10 mg PO TID PRN (Reason: muscle spasm) Qty: 14 0RF guanfacine 1 mg tablet 1 mg PO BID ipratropium bromide 21 mcg (0.03 %) spray,non-aerosol 1 spray intranasal PRN PRN (Reason: Allergy Symptoms) trazodone 50 mg tablet 50 mg PO ONCE PM pantoprazole 40 mg tablet,delayed release (DR/EC) 40 mg PO DAILY venlafaxine 37.5 mg capsule,extended release 24hr 37.5 mg PO DAILY Referrals: Caro Hawk ARNP [Primary Care Provider, Family Practice] Stand Alone Forms: Patient Portal/API
[2025-05-19] MEDS: PHENAZOPYRIDINE 100 MG TABLET 200 MG PO (06:18)
== END 2025-05-19 06:21 | disposition home or self-care (01) ==
PROVIDERS: Emergency Provider Emergency Medicine; PCP Nurse Practitioner Family
DX: N39.0 Urinary tract infection, site not specified (principal)
CPT/HCPCS: 81001; 81025; 87077; 87086; 87186; 99283